=== PATIENT | female | born 1960 | race Caucasian/White ===

== ENCOUNTER → 2017-12-17 14:18 | Outpatient (CLI) | payer BC, SELFPAY ==
[2017-12-20 12:05] LABS: HPV APTIMA, High Risk Negative (Negative)
== END ==
PROVIDERS: Visit Provider Obstetrics & Gynecology
DX: Z12.4 Encounter for screening for malignant neoplasm of cervix (principal)
CPT/HCPCS: 88175; G0145

== ENCOUNTER → 2017-12-23 13:28 | Outpatient (CLI) | payer BC, SELFPAY ==
--- NOTE | 2017-12-23 13:30 | BI_ITS ---
MAMMOGRAPHY - BILATERAL SCREENING REASON FOR EXAM: Female, 57 years old. Routine annual screening examination. PERTINENT HISTORY: Mother with breast cancer. Aunt with breast cancer. TECHNIQUE: Digital bilateral breast yudi (3D mammographic acquisition) in the CC and MLO projections. 2-D mediolateral oblique (MLO) and craniocaudad (CC) views of both breasts were obtained. CAD: Full Field Digital Mammography with Computer Added Detection was performed. COMPARISON: Comparison is made with prior outside examination dated December 05, 2016. FINDINGS: Breast Composition: The breasts are heterogeneously dense, which may obscure small masses. There are no dominant masses or suspicious calcifications. No other significant abnormalities are identified. There has been no significant change since the prior study. BI/SCREENING MAMM (CAD), BILAT IMPRESSION: Stable bilateral screening mammogram. Yearly follow-up mammogram recommended. (A) ASSESSMENT CATEGORY: BIRADS Category 1: Negative. A letter regarding these results will be sent to the patient by the facility within 30 days. Approximately 10% of breast cancers are not detected by mammography. A normal mammogram should not delay biopsy of a clinically suspicious abnormality. [id number] Electronically Signed: Get Hidalgo MD at 15:06 EDT Tel [phone], Service support ,
== END ==
PROVIDERS: Family Provider Family Medicine; PCP Family Medicine; Visit Provider Obstetrics & Gynecology
DX: Z12.31 Encounter for screening mammogram for malignant neoplasm of breast (principal)
CPT/HCPCS: 77063; 77067

== ENCOUNTER → 2018-12-25 | Outpatient (CLI) | payer BC, SELFPAY ==
--- NOTE | 2018-12-25 14:50 | BI_ITS ---
MAMMOGRAPHY - BILATERAL SCREENING REASON FOR EXAM: Female, 58 years old. Routine annual screening examination. PERTINENT HISTORY: Mother with breast cancer. Aunt with breast cancer. TECHNIQUE: Digital bilateral breast dexter (3D mammographic acquisition) in the CC and MLO projections. 2-D mediolateral oblique (MLO) and craniocaudad (CC) views of both breasts were obtained. CAD: Full Field Digital Mammography with Computer Added Detection was performed. COMPARISON: Comparison is made with prior study dated December 23, 2017 and December 05, 2016. FINDINGS: Breast Composition: The breasts are heterogeneously dense, which may obscure small masses. There are no dominant masses or suspicious calcifications. No other significant abnormalities are identified. There has been no significant change since the prior study. BI/SCREEN MAMM (CAD) W/DEXTER BILAT IMPRESSION: Stable bilateral screening mammogram. Yearly follow-up mammogram recommended. (A) ASSESSMENT CATEGORY: BIRADS Category 1: Negative. A letter regarding these results will be sent to the patient by the facility within 30 days. Approximately 10% of breast cancers are not detected by mammography. A normal mammogram should not delay biopsy of a clinically suspicious abnormality. [id number] Electronically Signed: Get Hidalgo, at 7:55 EDT , Service support ,
== END | disposition home or self-care (01) ==
LOC: OPBI 14:48
PROVIDERS: Family Provider Family Medicine; PCP Family Medicine; Referring Provider Obstetrics & Gynecology; Visit Provider Obstetrics & Gynecology
DX: Z12.31 Encounter for screening mammogram for malignant neoplasm of breast (principal)
CPT/HCPCS: 77063; 77067

== ENCOUNTER → 2019-12-29 12:46 | Outpatient (CLI) | payer BC, SELFPAY ==
[2018-12-26 13:16] VITALS: BMI 23.5
--- NOTE | 2019-12-29 12:48 | BI_ITS ---
MAMMOGRAPHY - BILATERAL SCREENING REASON FOR EXAM: Female, 59 years old. Routine annual screening examination. PERTINENT HISTORY: Mother with breast cancer. Aunt with breast cancer. TECHNIQUE: Digital bilateral breast dexter (3D mammographic acquisition) in the CC and MLO projections. 2-D mediolateral oblique (MLO) and craniocaudad (CC) views of both breasts were obtained. CAD: Full Field Digital Mammography with Computer Added Detection was performed. COMPARISON: Comparison is made with prior examination dated December 25, 2018 and December 23, 2017. FINDINGS: Breast Composition: The breasts are heterogeneously dense, which may obscure small masses. There are no dominant masses or suspicious calcifications. No other significant abnormalities are identified. There has been no significant change since the prior study. BI/SCREEN MAMM (CAD) W/DEXTER BILAT IMPRESSION: Stable bilateral screening mammogram. Yearly follow-up mammogram recommended. (A) ASSESSMENT CATEGORY: BIRADS Category 1: Negative. A letter regarding these results will be sent to the patient by the facility within 30 days. Approximately 10% of breast cancers are not detected by mammography. A normal mammogram should not delay biopsy of a clinically suspicious abnormality. [id number] Electronically Signed: Get Hidalgo, at 15:07 EDT , Service support ,
== END ==
PROVIDERS: PCP Family Medicine; Referring Provider Obstetrics & Gynecology; Visit Provider Obstetrics & Gynecology
DX: Z12.31 Encounter for screening mammogram for malignant neoplasm of breast (principal)
CPT/HCPCS: 77063; 77067

== ENCOUNTER → 2020-12-29 11:44 | Outpatient (CLI) | payer BC, SELFPAY ==
[2019-12-29 14:07] VITALS: BMI 23.5
--- NOTE | 2020-12-29 11:48 | BI_ITS ---
MAMMOGRAPHY - BILATERAL SCREENING REASON FOR EXAM: Female, 60 years old. Routine annual screening examination. PERTINENT HISTORY: Mother with breast cancer. Aunt with breast cancer. TECHNIQUE: Digital bilateral breast dexter (3D mammographic acquisition) in the CC and MLO projections. 2-D mediolateral oblique (MLO) and craniocaudad (CC) views of both breasts were obtained. CAD: Full Field Digital Mammography with Computer Added Detection was performed. COMPARISON: Comparison is made with prior examination dated 12/29/2019 and 12/25/2018. FINDINGS: Breast Composition: The breasts are heterogeneously dense, which may obscure small masses. There are no dominant masses or suspicious calcifications. No other significant abnormalities are identified. There has been no significant change since the prior study. BI/SCRN MAMM (CAD)W/DEXTER BILAT IMPRESSION: Stable bilateral screening mammogram. Yearly follow-up mammogram recommended. (A) ASSESSMENT CATEGORY: BIRADS Category 1: Negative. A letter regarding these results will be sent to the patient by the facility within 30 days. Approximately 10% of breast cancers are not detected by mammography. A normal mammogram should not delay biopsy of a clinically suspicious abnormality. [id number] Electronically Signed: Get Hidalgo MD at 13:14 EDT , Service support ,
== END ==
PROVIDERS: PCP Family Medicine; Referring Provider Obstetrics & Gynecology; Visit Provider Obstetrics & Gynecology
DX: Z12.31 Encounter for screening mammogram for malignant neoplasm of breast (principal)
CPT/HCPCS: 77063; 77067

== ENCOUNTER → 2021-01-12 13:09 | Outpatient (CLI) | payer BC, SELFPAY ==
[2021-01-03 12:49] VITALS: BMI 23.5
--- NOTE | 2021-01-12 13:25 | BD_ITS ---
STUDY: DUAL ENERGY X-RAY ABSORPTIOMETRY / DXA REASON FOR EXAM: Female, 60 years old. Osteopenia TECHNIQUE: Bone Mineral Density (BMD) measurements of lumbar spine and bilateral hips were obtained. COMPARISON: Comparison is made with prior study dated 12/15/2015. FINDINGS: Lumbar Spine (L1-L4): g/cm2 (0.955) / T-score (-1.8) / Z-score (-0.4) Findings are suggestive of osteopenia with a moderate fracture risk. Left Femur Total: g/cm2 (0.734) / T-score (-2.2) / Z-score (-1.2) Left Femoral Neck: g/cm2 (0.745) / T-score (-2.1) / Z-score (-0.8) Right Femur Total: g/cm2 (0.690) / T-score (-2.5) / Z-score (-1.5) Right Femoral Neck: g/cm2 (0.7-1) / T-score (-2.3) / Z-score (-1.0) The T-Scores on the most recent prior examination were: Lumbar Spine (L1-L4): There has been worsening of bone density since the previous examination. Left Femur Total: which represents a worsening of 0.4%. Right Femur Total: which represents a worsening of 0.1%. BD/Dexa Bone Density Study IMPRESSION: The patient is considered osteopenic as outlined below according to World Bunny Organization (WHO) criteria with a high fracture risk. There has been worsening of bone density since the previous examination. Reference Information: The T-score is the number of standard deviations above or below the standard which is normal for young adults at their peak bone mineral density. The World Health Organization (WHO) interprets the T-scores as follows: Above -1 Normal bone density Between -1 and -2.5 Osteopenia Equal to / or below -2.5 Osteoporosis As a practical clinical guideline, osteopenia may be graded as follows: Mild -1 through -1.5 Moderate -1.6 through -2.0 Severe -2.1 through -2.4 The Z-score is the number of standard deviations above or below age-matched controls. A Z-score of less than -1.5 would be considered abnormal. References: 1. NIH Osteoporosis and Related Bone Diseases www osteo.org 2. International Society for Clinical Densitometry www iscd.org 3. National Osteoporosis Foundation www nof.org Electronically Signed: Get Hidalgo MD at 15:47 EDT , Service support ,
== END ==
PROVIDERS: PCP Family Medicine; Referring Provider Nurse Practitioner Women's Health; Visit Provider Nurse Practitioner Women's Health
DX: M85.89 Other specified disorders of bone density and structure, multiple sites (principal)
CPT/HCPCS: 77080

== ENCOUNTER → 2022-01-10 | Outpatient (CLI) | payer BC, SELFPAY | END | disposition home or self-care (01) | PROVIDERS: PCP Family Medicine; Referring Provider Nurse Practitioner Women's Health; Visit Provider Nurse Practitioner Women's Health | DX: R82.90 Unspecified abnormal findings in urine (principal) | CPT/HCPCS: 87077; 87086; 87088; 87186 ==

== ENCOUNTER → 2022-01-11 | Outpatient (CLI) | payer BC, SELFPAY ==
--- NOTE | 2022-01-11 14:32 | BI_ITS ---
MAMMOGRAPHY - BILATERAL SCREENING REASON FOR EXAM: Female, 61 years old. Routine annual screening examination. PERTINENT HISTORY: Mother with breast cancer. Aunt with breast cancer. TECHNIQUE: Digital bilateral breast dexter (3D mammographic acquisition) in the CC and MLO projections. 2-D mediolateral oblique (MLO) and craniocaudad (CC) views of both breasts were obtained. CAD: Full Field Digital Mammography with Computer Added Detection was performed. COMPARISON: Mammograms from 12/29/2020, 12/29/2019, 12/25/2018, 12/23/2017. FINDINGS: Breast Composition: The breasts are heterogeneously dense, which may obscure small masses. There are no dominant masses or suspicious calcifications. No other significant abnormalities are identified. There has been no significant change since the prior study. BI/SCRN MAMM (CAD)W/DEXTER BILAT IMPRESSION: Stable bilateral screening mammogram. Yearly follow-up mammogram recommended. (A) ASSESSMENT CATEGORY: BIRADS Category 1: Negative. A letter regarding these results will be sent to the patient by the facility within 30 days. Approximately 10% of breast cancers are not detected by mammography. A normal mammogram should not delay biopsy of a clinically suspicious abnormality. [id number] Electronically Signed: Minesh Raman, at 14:44 EDT ,
== END | disposition home or self-care (01) ==
PROVIDERS: PCP Family Medicine; Referring Provider Nurse Practitioner Women's Health; Visit Provider Nurse Practitioner Women's Health
DX: Z12.31 Encounter for screening mammogram for malignant neoplasm of breast (principal)
CPT/HCPCS: 77063; 77067; 87086

== ENCOUNTER → 2022-02-09 | Outpatient (CLI) | payer BC, SELFPAY ==
[2022-02-09 08:00] LABS: AST(SGOT) 52 U/L (15-37); Alanine Aminotransfer ALT/SGPT 81 U/L (13-56); Albumin, Serum 3.7 g/dL (3.2-5.0); Alkaline Phosphatase 85 U/L (45-117); Anion Gap 4 (5-15); BUN 16 mg/dL (7-18); BUN/Creat Ratio 16.8 RATIO (10-20); Calcium,Total 9.1 mg/dL (8.5-10.1); Chloride 109 mmol/L (98-107); Creatinine, Serum 0.95 mg/dL (0.55-1.02); EST Glomerular Filtration Rate 63 mL/min (>60); Est Glom Filt Rate - Afr Amer 76 mL/min (>60); Globulin 3.7 g/dL (2.2-4.2); Glucose 92 mg/dL (74-106); Potassium 3.8 mmol/L (3.5-5.1); Protein, Total 7.4 g/dL (6.4-8.2); Sodium Level 140 mmol/L (136-145)
[2022-02-09 09:08] LABS: PTHIN 90.1 pg/mL (18.4-80.1)
[2022-02-09 09:12] LABS: Vitamin D,25 Hydroxy 37.8 ng/mL
== END | disposition home or self-care (01) ==
LOC: LAB 05:58
PROVIDERS: PCP Family Medicine; Referring Provider Internal Medicine Endocrinology, Diabetes & Metabolism; Visit Provider Internal Medicine Endocrinology, Diabetes & Metabolism
DX: M81.0 Age-related osteoporosis without current pathological fracture (principal); E55.9 Vitamin D deficiency, unspecified
CPT/HCPCS: 36415; 80053; 82306; 83970

== ENCOUNTER 2022-02-28 05:55 | Outpatient (CLI) | payer BC, SELFPAY ==
[2022-02-28 06:56] LABS: AST(SGOT) 26 U/L (15-37); Alanine Aminotransfer ALT/SGPT 52 U/L (13-56); Albumin, Serum 3.7 g/dL (3.2-5.0); Alkaline Phosphatase 85 U/L (45-117); Bilirubin, Direct 0.25 mg/dL (0.00-0.30); Globulin 3.6 g/dL (2.2-4.2); Protein, Total 7.3 g/dL (6.4-8.2)
== END 2022-02-28 23:59 | disposition home or self-care (01) ==
LOC: LAB 05:56
PROVIDERS: PCP Family Medicine; Visit Provider Family Medicine
DX: R74.8 Abnormal levels of other serum enzymes (principal)
CPT/HCPCS: 36415; 80076

== ENCOUNTER 2022-03-22 16:06 | Outpatient (CLI) | payer BC, SELFPAY ==
--- NOTE | 2022-03-22 16:08 | RAD_ITS ---
STUDY: X-RAY - LEFT SHOULDER REASON FOR EXAM: Female, 61 years old. Left shoulder stiffness TECHNIQUE: 4 view(s) of the shoulder. COMPARISON: None. FINDINGS: Glenohumeral joint and acromioclavicular joint are in normal alignment with mild degenerative change. Normal acromion. Normal humeral head and visualized proximal humerus. Normal clavicle scapula. The soft tissue structures are unremarkable. Normal visualized pulmonary apex. RAD/Shoulder min 2 Views IMPRESSION: 1. No acute abnormality of the left shoulder 2. Left glenohumeral and acromioclavicular joint osteoarthritic change Electronically Signed: Zhao Wyatt MD at 2:42 EDT ,
== END 2022-03-22 23:59 | disposition home or self-care (01) ==
PROVIDERS: PCP Family Medicine; Referring Provider Family Medicine; Visit Provider Family Medicine
DX: M25.812 Other specified joint disorders, left shoulder (principal); R82.90 Unspecified abnormal findings in urine
CPT/HCPCS: 73030; 87077; 87086; 87088; 87186

== ENCOUNTER → 2022-04-19 | Outpatient (CLI) | payer BC, SELFPAY ==
--- NOTE | 2022-04-19 07:17 | MRI_ITS ---
STUDY: MRI LEFT SHOULDER REASON FOR EXAM: Decreased range of motion of the left shoulder for 3.5 months. TECHNIQUE: Standardized fat and water weighted pulse sequences were obtained in all 3 orthogonal planes. COMPARISON: Radiographs 03/22/2022. FINDINGS: Normal supraspinatus tendon. Normal infraspinatus tendon. Normal subscapularis tendon. Normal teres minor tendon. Normal supraspinatus muscle. Normal infraspinatus muscle. Normal subscapularis muscle. Normal teres minor muscle. Normal glenohumeral articulation. There is very mild cystic change of the posterior aspect of the greater tuberosity. Normal biceps labral complex. Normal intracapsular long biceps tendon. Normal labrum. Normal capsulo- ligamentous complex. Normal acromioclavicular articulation. There is a Type II morphology (curved), with a neutral orientation. There is a small volume of subacromial-subdeltoid bursal fluid (T2 coronal images 10, 11). There is thickening of the coracohumeral ligament (T2 sagittal image 8). Normal deltoid muscle. Normal trapezius muscle. MRI/Upper Ext Joint Only(Routine) IMPRESSION: Thickening of the coracohumeral ligament, a possible MRI manifestation of adhesive capsulitis. Mild subacromial-subdeltoid bursitis. No demonstrated rotator cuff tear. Electronically Signed: Andrews Schaeffer MD at 8:33 EDT ,
== END | disposition home or self-care (01) ==
PROVIDERS: PCP Family Medicine; Referring Provider Family Medicine; Visit Provider Family Medicine
DX: M25.812 Other specified joint disorders, left shoulder (principal)
CPT/HCPCS: 73221

== ENCOUNTER → 2022-04-20 | Outpatient (CLI) | payer BC, SELFPAY ==
[2022-04-20] MEDS: DENOSUMAB 60 MG/ML SC (14:34)
[2022-04-20 14:35] VITALS: BP 152/90; PULSE 83; O2SAT 99
== END | disposition home or self-care (01) ==
LOC: MEDOUTP 14:16
PROVIDERS: PCP Family Medicine; Referring Provider Internal Medicine Endocrinology, Diabetes & Metabolism; Visit Provider Internal Medicine Endocrinology, Diabetes & Metabolism
DX: M81.0 Age-related osteoporosis without current pathological fracture (principal)
CPT/HCPCS: 96372; J0897

== ENCOUNTER 2022-09-10 14:00 | Outpatient (RCR) | payer BC, SELFPAY ==
--- NOTE | 2022-02-15 16:52 | HP.PTEVAL_ITS ---
Patient's Visit Information TREVOR THOMPSON is a 61 year old F referred to Physical Therapy by Dr. Nas Medina MD with a diagnosis of Left Posterior Capsule Tightness- Shoulder. Date of Evaluation: 02/15/22 Physical Therapist: Ailyn Long DPT - Visit Plan Frequency: 2x /Week Duration: 4 Weeks Plan: Focus on UE ROM and scapular s/s. HEP Given IE: Supine Cane Flexion/ER, Standing Abd/IR, Wall Wash Flexion, Postural Education - Subjective Patient reports that her daughter has the same thing and they told her she has frozen shoulder- she was diagnosed with tight posterior capsule. She has had this for a awhile. She saw Dr. Medina who gave her some exercises and its better. If doesn't go away to come back and see him- no X-ray or MRI. Pain is located from the shoulder to the elbow. Left Hand Dominate. Worst: 10/10 for a second then it goes away- stabbing pains. Then it goes away quickly. Does not go past the elbow. Agg: going behind her back and out to the side. Best: 0/10 Eases: letting it hang at her side. No N/T in the fingers. No LYNCH, blurred vision or dizziness. She had a DM test which was negative. Sleep: disturbed if she moves incorrectly- side sleeper. 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 PMHx/Meds: see chart - Objective Posture: FH, RS- can correct but does not maintain. Gait: no deviation noted- good arm swing and trunk rotation. Palpation: not tender to touch. ROM: Cervical: WFL pain with SB to the left Shoulder AROM: Flexion: 150 degrees, Abd: 90 degrees, IR: to pocket, ER: neutral, PROM: Flexion: 160 degrees, Abd: 130 degrees, IR: to belly, ER: 10 degrees with pain in all directions. Elbow/Wrist/Hand: WNL. Strength: Scap: fair minus- mild winging, Shoulder: 4/5 in neutral, Elbow: 4+/5, Wrist: 5/5 Packaging Sales: 40 lbs bilateral. Flex: UT: moderate, Levator: moderate. Sensation: WFL to gross touch bilateral UE - Special Tests L Shoulder Lift Off Test - Subscapular Tear: Negative L Shoulder Empty Can - SS: Positive L Shoulder Belly Press - SupScap: Positive L Shoulder Neer - Impingement: Positive L Shoulder Escudero Franky - Impingement: Positive - Balance/Special Test Scores Quick DASH Score: 9.0900 - Goals Goal 1:: Patient will be I with HEP and progression Goal Time Frame: 4-6 Weeks Goal 2:: Patient will maintain proper posture t/o tx session to demo increased scap s/s Goal Time Frame: 4-6 Weeks Goal 3:: Patient will demo full AROM of the left shoulder Goal Time Frame: 4-6 Weeks Goal 4:: Patient will report 80% improvement Goal Time Frame: 4-6 Weeks - Rehabilitation Potential Physical Therapy Diagnosis: Patient presents with hypomobility- she has decreased UE and scapular strength/stabilization, ROM and muscular endurance leading to poor posture and increased pain with ADL' - Anticipated Interventions Patient/Client Instruction: Educate patient on: Benefits of Fitness Program Therapeutic Exercise to Include: Strength training, Endurance training, Coordination, Agility training, Body mechanics, Postural training, Flexibilty training, Dynamic Lumbar Stabilization, Scapular Strength/Stabilization For the Purpose of:: To improve muscle performance and motor function Thank you for the opportunity to evaluate your patient. For Medicare and Medicare HMO plans, please review the plan of care and approve it. It will need to be FAXED BACK to us at [phone] for Medicare purposes. For Medicare only, by signing this I certify the plan of care. Please let me know if there are questions or concerns regarding this plan of care. Physician Signature: Date:
--- NOTE | 2022-03-21 15:51 | HP.PTREVAL ---
Dr. Nas Medina MD, It has been my pleasure to treat TREVOR THOMPSON over the last 9 visits for Left Posterior Capsule Tightness- Shoulder. Please see the progress note below for an update on the physical therapy plan of care! Subjective: She is much better but she still has a hard time getting her arm behind her back. She still has pain with behind her back and it radiates down the arm. Better but on there yet. She does not have a MD apt lined up. Objective/Function: Posture: fair throughout in standing. Gait: no deviation noted- good arm swing and trunk rotation. Palpation: not tender to touch. 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 Flex: UT: moderate, Levator: moderate. Sensation: WFL to gross touch bilateral UE. - Special Tests. L Shoulder Lift Off Test - Subscapular Tear: Negative. L Shoulder Empty Can - SS: Positive. L Shoulder Belly Press - SupScap: Positive. L Shoulder Neer - Impingement: Positive. L Shoulder Escudero Franky - Impingement: Positive Plan Plan: Focus on UE ROM and scapular s/s. HEP Given IE: Supine Cane Flexion/ER, Standing Abd/IR, Wall Wash Flexion, Postural Education Balance/Gait/Functional tests - Balance/Special Test Scores Quick DASH Score: 34.0900 Goals Goal 1:: Patient will be I with HEP and progression Goal Time Frame: 4-6 Weeks Goal Progress: Progressing Goal 2:: Patient will maintain proper posture t/o tx session to demo increased scap s/s Goal Time Frame: 4-6 Weeks Goal Progress: Progressing Goal 3:: Patient will demo full AROM of the left shoulder Goal Time Frame: 4-6 Weeks Goal Progress: Progressing Goal 4:: Patient will report 80% improvement Goal Time Frame: 4-6 Weeks Goal Progress: Progressing Anticipated Interventions Patient/Client Instruction: Educate patient on: Benefits of Fitness Program Therapeutic Exercise to Include: Strength training, Endurance training, Coordination, Agility training, Body mechanics, Postural training, Flexibilty training, Dynamic Lumbar Stabilization, Scapular Strength/Stabilization For the Purpose of:: To improve muscle performance and motor function Please do not hesitate to contact me at [phone] by phone or if you have questions or concerns regarding this new plan of care! Sincerely, FARRAH AlfaroT
--- NOTE | 2022-05-21 15:50 | HP.PTREVAL ---
Dr. Nas Medina MD, It has been my pleasure to treat TREVOR THOMPSON over the last 16 visits for Left Posterior Capsule Tightness- Shoulder. Please see the progress note below for an update on the physical therapy plan of care! Subjective: Patient reports that she is much better- less painful and has more motion. Pain is only in the biceps and its bad if she hits it wrong- but the moment she puts it down the pain goes away. She has not had an injection in the shoulder. She does not have an apt to go back and see him just PRN. She feels that she needs to continue therapy- she feels that the work on the shoulder really helps. Objective/Function: Posture: fair throughout in standing. Gait: no deviation noted- good arm swing and trunk rotation. Palpation: not tender to touch. ROM: Cervical: WFL in all planes Shoulder AROM: Flexion: 150 degrees, Abd: 160 degrees, IR: to pocket, ER: 40, Strength: Scap: fair minus- mild winging, Shoulder: 4+/5 in neutral, Elbow: 4+/5, Wrist: 5/5 Bookkeeping Manager: 40 lbs bilateral. Flex: UT: moderate, Levator: moderate. Sensation: WFL to gross touch bilateral UE. Plan Plan: 05/21/22: Cont 2x a week for 4 weeks. Focus on UE ROM and scapular s/s. HEP Given IE: Supine Cane Flexion/ER, Standing Abd/IR, Wall Wash Flexion, Postural Education Balance/Gait/Functional tests - Balance/Special Test Scores Quick DASH Score: 18.1800 Goals Goal 1:: Patient will be I with HEP and progression Goal Time Frame: 4-6 Weeks Goal Progress: Progressing Goal 2:: Patient will maintain proper posture t/o tx session to demo increased scap s/s Goal Time Frame: 4-6 Weeks Goal Progress: Progressing Goal 3:: Patient will demo full AROM of the left shoulder Goal Time Frame: 4-6 Weeks Goal Progress: Progressing Goal 4:: Patient will report 80% improvement Goal Time Frame: 4-6 Weeks Goal Progress: Progressing Anticipated Interventions Patient/Client Instruction: Educate patient on: Benefits of Fitness Program Therapeutic Exercise to Include: Strength training, Endurance training, Coordination, Agility training, Body mechanics, Postural training, Flexibilty training, Dynamic Lumbar Stabilization, Scapular Strength/Stabilization For the Purpose of:: To improve muscle performance and motor function Please do not hesitate to contact me at [phone] by phone or if you have questions or concerns regarding this new plan of care! Sincerely, AFRRAH AlfaroT
--- NOTE | 2022-06-27 15:56 | HP.PTREVAL_ITS ---
Dr. Nas Medina MD, It has been my pleasure to treat TREVOR THOMPSON over the last 25 visits for Left Posterior Capsule Tightness- Shoulder. Please see the progress note below for an update on the physical therapy plan of care! Subjective: She reports that she is so much better with therapy and massage- The only issue she is still experiencing is reaching overhead. She does not feel that she does not have the strength to lift something overhead. She would like to continue with PT. Objective/Function: Posture: fair throughout in sitting and standing. Gait: no deviation noted- good arm swing and trunk rotation. Palpation: not tender to touch. ROM: Cervical: WFL in all planes Shoulder AROM: Flexion: 160 degrees, Abd: 170 degrees, IR: to belt line, ER: 40, Strength: Scap: fair minus- mild winging, Shoulder: 4+/5 in neutral, Elbow: 4+/5, Wrist: 5/5 Incident Response Manager: 40 lbs bilateral. Flex: UT: moderate, Levator: moderate. Sensation: WFL to gross touch bilateral UE. Plan Plan: 06/27/22: Continue 2x a week for 3 weeks- progress is still being made in ROM-. 05/21/22: Cont 2x a week for 4 weeks. Focus on UE ROM and scapular s/s. HEP Given IE: Supine Cane Flexion/ER, Standing Abd/IR, Wall Wash Flexion, Postural Education Balance/Gait/Functional tests - Balance/Special Test Scores Quick DASH Score: 11.3625 Goals Goal 1:: Patient will be I with HEP and progression Goal Time Frame: 4-6 Weeks Goal Progress: Progressing Goal 2:: Patient will maintain proper posture t/o tx session to demo increased scap s/s Goal Time Frame: 4-6 Weeks Goal Progress: Progressing Goal 3:: Patient will demo full AROM of the left shoulder Goal Time Frame: 4-6 Weeks Goal Progress: Progressing Goal 4:: Patient will report 80% improvement Goal Time Frame: 4-6 Weeks Goal Progress: Progressing Anticipated Interventions Patient/Client Instruction: Educate patient on: Benefits of Fitness Program Therapeutic Exercise to Include: Strength training, Endurance training, Coordination, Agility training, Body mechanics, Postural training, Flexibilty tr aining, Dynamic Lumbar Stabilization, Scapular Strength/Stabilization For the Purpose of:: To improve muscle performance and motor function Please do not hesitate to contact me at [phone] by phone or if you have questions or concerns regarding this new plan of care! Sincerely, FARRAH AlfaroT
--- NOTE | 2022-09-10 14:13 | HP.PTDCSUM_ITS ---
It has been my pleasure to treat TREVOR THOMPSON referred by Dr. Nas Medina MD, with the diagnosis of Left Posterior Capsule Tightness- Shoulder for a total of 34 visit(s). Discharge Date: Please see the following information for a summary of their discharge status. Subjective: Patient reports that she is so much better- but now her right arm is bothering her. Behind the back is still tight. She is doing massage and exercises. No questions or concerns on the exercises. Left shoulder Pain Intensity (Out of 10): 0 % Improvement: 95 Objective/Function: Posture: fair throughout in sitting and standing. Gait: no deviation noted- good arm swing and trunk rotation. Palpation: not tender to touch. 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 Flex: UT: moderate, Levator: moderate. Sensation: WFL to gross touch bilateral UE. Goal 1:: Patient will be I with HEP and progression Goal Progress: Progressing Goal 2:: Patient will maintain proper posture t/o tx session to demo increased scap s/s Goal Progress: Progressing Goal 3:: Patient will demo full AROM of the left shoulder Goal Progress: Progressing Goal 4:: Patient will report 80% improvement Goal Progress: Progressing Plan: 09/10/22:[facility]charge to [facility] If there are questions or concerns regarding this patient's physical therapy, please feel free to call me at [phone]. Thank you for the referral of this patient. Sincerely, Ailyn Long, DPT Balance/Gait/Functional tests - Balance/Special Test Scores Quick DASH Score: 6.8175
== END 2022-09-10 14:22 | disposition home or self-care (01) ==
LOC: PT 14:00
PROVIDERS: PCP Family Medicine; Referring Provider Family Medicine; Visit Provider Family Medicine
DX: M25.612 Stiffness of left shoulder, not elsewhere classified (principal)
CPT/HCPCS: 97110; 97140; 97161; 97164

== ENCOUNTER → 2022-10-18 | Outpatient (CLI) | payer BC, SELFPAY ==
[2022-10-18 18:10] LABS: Absolute Lymphocyte Count 2.74 X10^3/uL (0.83-4.51); Absolute Neutrophil Count 3.3 X10^3/uL (2.0-7.7); Basophil# 0.03 X10^3/uL; Basophil% 0.4 % (0-1); Eosinophils% 2.9 % (0-5); Erythrocyte Sedimentation Rate 11 mm/hr (0-30); Hematocrit 43.2 % (37-47); Hemoglobin 13.8 g/dL (12.0-15.0); Lymphocyte # 2.74 X10^3/ul (0.83-4.51); Lymphocyte % 39.8 % (19-41); Mean Corp Hgb Conc 31.9 g/dL (32-36); Mean Corpuscular Hgb 29.7 pg (27.0-32.0); Mean Corpuscular Volume 92.9 fL (81-99); Mean Platelet Vol. 10.7 fl (6.2-12.0); Monocyte# 0.58 X10^3/uL; Monocyte% 8.4 % (0-10); NRBC Flagged by Analyzer 0 % (0-5); Neutrophil # 3.32 X10^3/uL (2.7-7.7); Neutrophil % 48.2 % (47-70); Platelet Count 306 K/mm3 (150-450); RBC Distribution Width CV 12.3 % (11.6-14.6); RBC Distribution Width SD 41.9 fl (35.1-43.9); Red Blood Count 4.65 M/mm3 (4.2-5.4); White Blood Count 6.9 K/mm3 (4.4-11.0)
[2022-10-18 18:25] LABS: Vitamin B12 366 pg/mL (211-911); Vitamin D,25 Hydroxy 43.9 ng/mL
[2022-10-18 18:32] LABS: ALB/GLOB Ratio 1.1 RATIO (0.9-2.4); AST(SGOT) 21 U/L (15-37); Alanine Aminotransfer ALT/SGPT 32 U/L (13-56); Alkaline Phosphatase 68 U/L (45-117); Anion Gap 6 (5-15); BUN 18 mg/dL (7-18); BUN/Creat Ratio 17.8 RATIO (10-20); Calcium,Total 9.2 mg/dL (8.5-10.1); Chloride 107 mmol/L (98-107); Creatinine, Serum 1.01 mg/dL (0.55-1.02); EST Glomerular Filtration Rate 59 mL/min (>60); Est Glom Filt Rate - Afr Amer 71 mL/min (>60); Globulin 3.6 g/dL (2.2-4.2); Glucose 87 mg/dL (74-106); Iron 51 ug/dL (50-170); Potassium 3.8 mmol/L (3.5-5.1); Protein, Total 7.6 g/dL (6.4-8.2); Sodium Level 140 mmol/L (136-145); Thyroid Stim Hormone (TSH) 1.72 uIU/mL (0.358-3.74)
== END | disposition home or self-care (01) ==
LOC: MFPLAB 16:41
PROVIDERS: PCP Family Medicine; Visit Provider Family Medicine
DX: R53.83 Other fatigue (principal)
CPT/HCPCS: 36415; 80053; 82306; 82533; 82607; 83540; 84443; 85025; 85652

== ENCOUNTER → 2022-10-19 | Outpatient (CLI) | payer BC, SELFPAY ==
[2022-10-19 14:23] VITALS: BP 143/81; PULSE 66; RESP 16; TEMP 36.3; O2SAT 99
[2022-10-19] MEDS: DENOSUMAB 60 MG/ML SC (14:26)
== END | disposition home or self-care (01) ==
LOC: MEDOUTP 14:17
PROVIDERS: PCP Family Medicine; Referring Provider Internal Medicine Endocrinology, Diabetes & Metabolism; Visit Provider Internal Medicine Endocrinology, Diabetes & Metabolism
DX: M81.0 Age-related osteoporosis without current pathological fracture (principal)
CPT/HCPCS: 96372; J0897

== ENCOUNTER 2022-11-02 05:43 | Emergency (ER) | payer BC, SELFPAY ==
[2022-11-02 05:44] VITALS: BP 151/71; PULSE 92; RESP 16; TEMP 36.6; O2SAT 100; BMI 26.9
--- NOTE | 2022-11-02 06:01 | CT_ITS ---
EXAM: CT HEAD WITHOUT INTRAVENOUS CONTRAST CLINICAL INDICATION: Pain/LYNCH/DIZZY TECHNIQUE: Multiple axial images were obtained of the head without intravenous contrast. This CT exam was performed using one or more of the following dose reduction techniques: automated exposure control, adjustment of the mA and/or kV according to patient size, and/or use of iterative reconstruction technique. This report was created using [employer] report generation technology. RADIATION DOSE: CTDIvol = 44.99 mGy, DLP = 829.85 mGy-cm. COMPARISON: None. FINDINGS: BRAIN AND EXTRA-AXIAL SPACES: Unremarkable. No intra- or extra-axial hemorrhage. No evidence of acute infarct. No intracranial mass or mass effect. There is preservation of the rodriguez/white matter interface. Posterior fossa structures are unremarkable. Ventricles are appropriate for age. No hydrocephalus. Basal cisterns are patent. BONES/JOINTS: Unremarkable. No discrete lytic or blastic abnormalities. SINUSES: Unremarkable as visualized. Clear. MASTOID AIR CELLS: Unremarkable. Clear. ORBITS: Visualized globes, extraocular muscles, optic nerves and retrobulbar fat appear unremarkable. CT/Brain/Head without Contrast IMPRESSION: Negative head/brain CT without intravenous contrast. Electronically Signed: Mir Betancourt MD at 6:56 EDT ,
--- NOTE | 2022-11-02 06:01 | EDS_ITS ---
HPI History of Present Illness Chief Complaint: Headache Informant: patient Onset/Context/Timing Onset: Hours (2) Context: Sudden and Activity (resting in bed, not asleep) Timing: Intermittent Location: Bifrontal and occipital Current Severity: Moderate Maximum Severity: Moderate Worsened by: Light Relieved by: Nothing Associated Symptoms/Injury Associated Symptoms: Positive for Visual Changes (Spots in peripheral vision bilaterally), Blurred Vision and Photophobia; Negative for Fever, Nausea, Vomiting, Sinus Pressure or Tingling Injury - LYNCH: Negative for Direct Trauma Narrative Narrative: Patient woke up in the middle of the night this morning around 4 AM with a headache, states it has been coming and going since then but when it started it was abrupt, but not a thunderclap. No loss of consciousness. She states it was awake when it started. For the past 2 or 3 weeks, she has been having lots of nasal congestion, some rhinorrhea without purulence, and vertiginous symptoms. The vertigo is gone and she has not been off balance this morning when walking. She denies any weakness, numbness in arms or legs or trouble speaking or understanding others although she was having some vision symptoms as above. Not really having much in the way of headaches like this in the past 2 or 3 weeks. She did see her PCP and had some blood work for all of this, she has had no imaging of her head recently. [facility] Medical History Osteoporosis Vitamin D deficiency Home Medications calcium-vitamin D3-vitamin K 500 mg-1,000 unit-40 mcg chewable tablet 1 tab PO DAILY 12/17/17 [History Last Taken Unknown] Prolia 60 mg/mL subcutaneous syringe (denosumab) 60 mg subcut [id number] #1 mL 02/12/22 [Rx Last Taken Unknown] Allergy/AdvReac Type Severity Reaction Status Date / Time Penicillins Allergy Severe Anaphylaxis Verified 11/02/22 05:48 alendronate sodium Allergy Intermediate Rash Verified 11/02/22 05:48 clindamycin Allergy Intermediate Rash Verified 11/02/22 05:48 doxycycline Allergy Intermediate PT UNSURE Verified 11/02/22 05:48 OF REACTION Family History Mother Breast cancer Aunt Breast cancer Father Larynx cancer Surgical History History of S/P appendectomy Social History Smoking Status: Former smoker alcohol intake: current details: 1 glass of wine nightly substance use type: does not use caffeine: Yes what type of physical activity do you participate in: none seatbelt use: always do you feel safe at home: Yes additional social history: - [employer]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 [employer] 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 at [employer] Convrrt ROS ED Constitutional Constitutional ED: Denies chills or fever(s) Eyes Eyes: Reports as per HPI, blurry vision and change in vision bilateral; Denies diplopia ENT ENT ED: Reports rhinorrhea; Denies ear pain or sore throat Cardiovascular Cardiovascular: Denies chest pain or palpitations Respiratory/Chest Respiratory/Chest: Denies cough or dyspnea Gastrointestinal Gastrointestinal: Denies abdominal pain, diarrhea, nausea or vomiting Genitourinary Genitourinary ED: Denies dysuria or urinary frequency Musculoskeletal Musculoskeletal: Denies back pain or myalgias Integumentary Denies abscess or rash Neurologic Neurologic: Reports headache(s); Denies paresthesias or weakness EXAM Physical Exam Const Vital Signs: 11/02/22 05:44 Temperature 97.9 F Temperature Source Temporal Pulse Rate 92 Respiratory Rate 16 Blood Pressure 151/71 H Blood Pressure Mean 97 Pulse Ox 100 Oxygen Delivery Method Room Air Positive well nourished and well developed General Appearance ED: well developed and NAD HEENT Reports normocephalic, TM's clear and moist mucous membranes atraumatic Tympanic Membrane ED: Yes TM's clear Eyes PERRL, EOMs intact bilaterally and conjunctivae normal Eyes Narrative: mild photophobia. No abnormal/pathologic nystagmus Neck no lymphadenopathy, supple and no meningeal signs Resp normal respiratory effort and clear to auscultation bilaterally GI non-tender and non-distended Palpation: soft Extremity normal to inspection and full ROM Neuro oriented x3 and CN's II-XII intact bilaterally Sensorium / Orientation: awake and alert Coordination / Balance: [id number] test normal and amqk-ou-nlim test normal Speech: speech normal Gait (Neuro): normal gait Motor Exam: strength 5/5 throughout Psych mental status grossly normal Skin Lesions: no lesions Rashes: no rashes MDM MDM MDM Narrative Medical decision making narrative: Patient was treated with IV Reglan and Toradol, and a CT of the brain was obtained, I had the equipment service technician include the sinuses as well given her symptoms. The images appear normal I see no evidence of sinus disease or focal GATE TECHNICIAN abnormality, radiology was in agreement and I agree with their interpretation. On reevaluation patient is feeling better. Stable for discharge home, her blood pressures in the 150s here, do not think this is deserving of acute emergent treatment, she needs to have follow-up evaluation blood pressure check. We discussed reasons to return. Radiography Diagnostic Testing: Clinical Impression(s) from Imaging Studies Brain CT 11/02/22 06:01 IMPRESSION: Negative head/brain CT without intravenous contrast. Electronically Signed: Mir Betancourt MD at 6:56 EDT , Discharge Plan Triage Chief Complaint: Headache ED Provider: Guru Antonio Dx/Rx/DC Orders Clinical Impression: Acute headache Instructions: ED Headache Unspecified, ED, Migraine (Classical) Prescriptions: No Action calcium-vitamin D3-vitamin K 500 mg-1,000 unit-40 mcg tablet,chewable 1 tab PO DAILY Prolia 60 mg/mL syringe 60 mg subcut [id number] Qty: 1 1RF Primary Care Provider: Meghan Barahona Referrals: Meghan Barahona MD [Primary Care Provider] - 3-5 Days if not improving Disposition Disposition: Home, Self Care
[2022-11-02] MEDS: Metoclopramide 10 MG/2 ML Vial 5 MG IV (06:11)
[2022-11-02] MEDS: Ketorolac 15 MG/ML Vial IV (06:12)
== END 2022-11-02 07:39 | disposition home or self-care (01) ==
PROVIDERS: Emergency Provider Emergency Medicine; PCP Family Medicine; Visit Provider Emergency Medicine
DX: R51.9 Headache, unspecified (principal); Z87.891 Personal history of nicotine dependence; M81.0 Age-related osteoporosis without current pathological fracture; Z79.899 Other long term (current) drug therapy
CPT/HCPCS: 70450; 96374; 96376; 99282

== ENCOUNTER 2022-11-19 07:00 | Outpatient (RCR) | payer BC, SELFPAY ==
--- NOTE | 2022-09-19 07:32 | HP.PTEVAL_ITS ---
Patient's Visit Information TREVOR THOMPSON is a 62 year old F referred to Physical Therapy by Dr. Nas Medina MD with a diagnosis of Right Shoulder Pain. Date of Evaluation: 09/19/22 Physical Therapist: Ailyn Long DPT - Visit Plan Frequency: 2x /Week Duration: 4 Weeks Plan: Focus on UE ROM and scapular s/s. HEP Given IE: Upper Trap Stretching, Table Walk Aways, Cat/Cow, Child's Pose - Subjective Right shoulder pain started about 3 weeks ago- she feels that its staying about the same- she has had frozen shoulder in the left UE and wanted to catch it quickly. Pain is located in the shoulder from the elbow to the neck- it does not hurt if she doesnt use it. Agg: out to the side and then behind the back. Eases: goes away immediately if she puts her arm back down. Worst: 10/10. Describes the pain as sharp. Left hand dominate. o N/T in the fingers. No LYNCH, blurred vision or dizziness. She had a DM test which was negative. Sleep: disturbed if she moves incorrectly- side sleeper. Work: [employer] s[employer]. No issues with diamond sizer strength or finger dexterity. She has had extensive PT ont he left and continues her HEP. PMHx/Meds: see chart - Objective Posture: FH, RS- can correct but does not maintain. Gait: no deviation noted- good arm swing and trunk rotation. Palpation: not tender to touch. ROM: Cervical: WFL pain with SB to the left Shoulder AROM: Flexion: 180 degrees, Abd: 160 degrees, IR: thumb to bottom of scap, ER: 50 PROM: WFL in all directions Elbow/Wrist/Hand: WNL. Strength: Scap: fair minus- mild winging, Shoulder: 4/5 in neutral, Elbow: 5/5, Wrist: 5/5. Flex: UT: moderate, Levator: moderate. Sensation: WFL to gross touch bilateral UE - Balance/Special Test Scores Quick DASH Score: 15.9075 - Goals Goal 1:: Patient will be I with HEP and progression Goal Time Frame: 4-6 Weeks Goal 2:: Patient will demo full AROM without pain Goal Time Frame: 4-6 Weeks Goal 3:: Patient will maintain proper posture to demo scap s/s Goal Time Frame: 4-6 Weeks Goal 4:: Patient will report 80% improvement Goal Time Frame: 4-6 Weeks - Rehabilitation Potential Physical Therapy Diagnosis: Patient presents with hypomobility- she has decreased UE and scapular strength/stabilization, ROM and muscular endurance leading to poor posture and increased pain with ADL' Rehabilitation Potential: Fair - Anticipated Interventions Patient/Client Instruction: Educate patient on: Benefits of Fitness Program Therapeutic Exercise to Include: Strength training, Endurance training, Coordination, Agility training, Body mechanics, Postural training, Flexibilty training, Gait and locomotor training, Neuromotor development, Dynamic Lumbar Stabilization, Scapular Strength/Stabilization For the Purpose of:: To improve muscle performance and motor function TENS: Yes Cryotherapy (ice pack, ice massage): Yes Thermo therapy (hot pack): Yes Thank you for the opportunity to evaluate your patient. For Medicare and Medicare HMO plans, please review the plan of care and approve it. It will need to be FAXED BACK to us at [phone] for Medicare purposes. For Medicare only, by signing this I certify the plan of care. Please let me know if there are questions or concerns regarding this plan of care. Physician Signature: Date:
--- NOTE | 2022-10-17 07:44 | HP.PTREVAL ---
Dr. Nas Medina MD, It has been my pleasure to treat TREVOR THOMPSON over the last 10 visits for Right Shoulder Pain. Please see the progress note below for an update on the physical therapy plan of care! Subjective: Patient is making progress with her ROM and strength- she feels that the left arm is 90% better and she is not having any issues with it. However, her right shoulder is only 65% better and is still waking her up at night. She feels that she would like to continue PT 2x a week for 4 weeks with progression to HEP with H&W Objective/Function: Posture: FH, RS- can correct but does not maintain. Gait: no deviation noted- good arm swing and trunk rotation. Palpation: not tender to touch. ROM: Cervical: WFL pain with SB to the left Shoulder AROM: Flexion: 180 degrees, Abd: 170 degrees, IR: thumb to bottom of scap, ER: 50 PROM: WFL in all directions Elbow/Wrist/Hand: WNL. Strength: Scap: fair minus- mild winging, Shoulder: 4+/5 in neutral, Elbow: 5/5, Wrist: 5/5. Flex: UT: moderate, Levator: moderate. Sensation: WFL to gross touch bilateral UE Plan Plan: 09/19/22: Continue 2x a week for 4 weeks with progression to H&W program. continue shoulder treatment tomorrow and notify EG if patient still dizzy. Balance/Gait/Functional tests - Balance/Special Test Scores Quick DASH Score: 29.5450 Goals Goal 1:: Patient will be I with HEP and progression Goal Time Frame: 4-6 Weeks Goal 2:: Patient will demo full AROM without pain Goal Time Frame: 4-6 Weeks Goal 3:: Patient will maintain proper posture to demo scap s/s Goal Time Frame: 4-6 Weeks Goal 4:: Patient will report 80% improvement Goal Time Frame: 4-6 Weeks Anticipated Interventions Patient/Client Instruction: Educate patient on: Benefits of Fitness Program Therapeutic Exercise to Include: Strength training, Endurance training, Coordination, Agility training, Body mechanics, Postural training, Flexibilty training, Gait and locomotor training, Neuromotor development, Dynamic Lumbar Stabilization, Scapular Strength/Stabilization For the Purpose of:: To improve muscle performance and motor function TENS: Yes Cryotherapy (ice pack, ice massage): Yes Thermo therapy (hot pack): Yes Please do not hesitate to contact me at [phone] by phone or if you have questions or concerns regarding this new plan of care! Sincerely, FARRAH AlfaroT
--- NOTE | 2022-11-19 07:45 | HP.PTDCSUM ---
It has been my pleasure to treat TREVOR THOMPSON referred by Dr. Nas Medina MD, with the diagnosis of Right Shoulder Pain for a total of 18 visit(s). Discharge Date: Please see the following information for a summary of their discharge status. Subjective: Patient reports that the right shoulder still has some issues going backwards and wakes her up going backwards. But its getting better. She feels good about the gym program. She is gone 2.5 weeks. Right Shoulder Pain Intensity (Out of 10): 4 Left Shoulder Pain Intensity (Out of 10): 0 % Improvement: 80 Objective/Function: Posture: fair throughout treatment session in both sitting and standing- no guarding of either UE Gait: no deviation noted- good arm swing and trunk rotation. Palpation: not tender to touch. ROM: Cervical: WFL Shoulder AROM: Flexion: 180 degrees, Abd: 170 degrees, IR: thumb to bottom of scap, ER: 50 PROM: WFL in all directions Elbow/Wrist/Hand: WNL. Strength: Scap: fair minus- mild winging, Shoulder: 4+/5 in neutral, Elbow: 5/5, Wrist: 5/5. Flex: UT: moderate, Levator: moderate. Sensation: WFL to gross touch bilateral UE Goal 1:: Patient will be I with HEP and progression Goal Progress: Goal Met Goal 2:: Patient will demo full AROM without pain Goal 3:: Patient will maintain proper posture to demo scap s/s Goal Progress: Goal Met Goal 4:: Patient will report 80% improvement Goal Progress: Goal Met Plan: 11/19/22: Discharge to I HEP through H&W- given written UE program. 09/19/22: Continue 2x a week for 4 weeks with progression to H&W program. continue shoulder treatment tomorrow and notify EG if patient still dizzy. If there are questions or concerns regarding this patient's physical therapy, please feel free to call me at [phone]. Thank you for the referral of this patient. Sincerely, Ailyn Long, DPT Balance/Gait/Functional tests - Balance/Special Test Scores Quick DASH Score: 13.6350
== END 2022-11-19 13:05 | disposition home or self-care (01) ==
LOC: PT 07:00
PROVIDERS: PCP Family Medicine; Referring Provider Family Medicine; Visit Provider Family Medicine
DX: Q14.8 Other congenital malformations of posterior segment of eye (principal); M75.41 Impingement syndrome of right shoulder
CPT/HCPCS: 97110; 97161; 97164; 97530

== ENCOUNTER → 2023-01-15 | Outpatient (CLI) | payer BC, SELFPAY ==
--- NOTE | 2023-01-15 13:45 | BI_ITS ---
MAMMOGRAPHY - BILATERAL SCREENING REASON FOR EXAM: Female, 62 years old. Routine annual screening examination. PERTINENT HISTORY: Aunt with breast cancer. TECHNIQUE: Digital bilateral breast dexter (3D mammographic acquisition) in the CC and MLO projections. 2-D mediolateral oblique (MLO) and craniocaudad (CC) views of both breasts were obtained. CAD: Full Field Digital Mammography with Computer Added Detection was performed. COMPARISON: Comparison is made with prior study dated January 11, 2022 and December 29, 2020. FINDINGS: Breast Composition: The breasts are heterogeneously dense, which may obscure small masses. There are no dominant masses or suspicious calcifications. No other significant abnormalities are identified. There has been no significant change since the prior study. BI/SCRN MAMM (CAD)W/DEXTER BILAT IMPRESSION: Stable bilateral screening mammogram. Yearly follow-up mammogram recommended. (A) ASSESSMENT CATEGORY: BIRADS Category 1: Negative. A letter regarding these results will be sent to the patient by the facility within 30 days. Approximately 10% of breast cancers are not detected by mammography. A normal mammogram should not delay biopsy of a clinically suspicious abnormality. [id number] Electronically Signed: Get Hidalgo MD at 14:45 EDT ,
[2023-01-18 14:09] LABS: HPV APTIMA, High Risk Negative (Negative)
== END | disposition home or self-care (01) ==
PROVIDERS: PCP Family Medicine; Referring Provider Nurse Practitioner Women's Health; Visit Provider Nurse Practitioner Women's Health
DX: Z12.31 Encounter for screening mammogram for malignant neoplasm of breast (principal); N95.0 Postmenopausal bleeding; Z80.3 Family history of malignant neoplasm of breast
CPT/HCPCS: 77063; 77067; 87624; 88175; G0145

== ENCOUNTER → 2023-02-04 | Outpatient (CLI) | payer BC, SELFPAY ==
[2023-02-04 08:27] LABS: CREATININE FINGERSTICK < 0.9 mg/dL (0.55-1.02); EGFR FINGERSTICK > 60.0000 mL/min (>60)
--- NOTE | 2023-02-04 08:30 | MRI_ITS ---
INDICATION: DIZZINESS, VISION PROBLEMS EXAMINATION: MRI - MR Brain WO/W Contrast TECHNIQUE: MRI examination of brain obtained with standard protocol including multiplanar multiecho imaging. MRI examination obtained with multiplanar multi echo pre and postcontrast imaging. Dedicated high-resolution imaging the posterior fossa also obtained. Pre and Postcontrast imaging obtained. IV Contrast Dosage and Agent: 17 mL Clariscan COMPARISON: CT of 11/02/2022. FINDINGS: HEMISPHERES, CEREBELLUM AND BRAINSTEM: 1. The cerebral parenchyma, ventricular system, subarachnoid spaces have normal configuration and density. There is a normal gyral pattern. There is normal rodriguez/white differentiation. No midline shift.. 2. The hemispheric white matter has normal appearance. No areas of abnormal fluid restriction or ischemic change. No areas of abnormal enhancement. 3. No intraparenchymal mass, hemorrhage, or acute territorial infarct. 4. The cerebellum, brainstem, basilar and suprasellar cisterns have normal appearance. No Chiari malformation. 5. Normal appearance the 7th and 8th cranial nerve complexes and IACs and memory is labyrinth bilaterally. No masses or abnormal enhancement. No evidence of soft tissue or fluid accumulation middle ear cavities or mastoid air cells. 6. No areas of abnormal contrast enhancement involving the cerebral parenchyma cerebellum or brainstem. PITUITARY: Infundibulum and pituitary have normal configuration. Midline structures appear normal. CSF SPACES: Appropriate for age. No hydrocephalus. Basal cisterns are patent. VESSELS: 1. There are normal flow voids noted in the great vessels at the skull base ORBITS AND PARANASAL SINUSES: 1. Both globes, extraocular muscles, optic nerves and retrobulbar fat appear unremarkable. 2. Paranasal sinuses are clear. BONY ELEMENTS: Bony elements of the cranial vault, facial skeleton and skull base have normal appearance. SCALP AND SOFT TISSUES: Normal appearance of the soft tissues of the scalp and the visualized face OTHER: None MRI/Brain W/WO Contrast IMPRESSION: 1. No intraparenchymal mass, hemorrhage, or acute territorial infarct. No areas of abnormal intraparenchymal or extra-axial contrast enhancement. 2. Normal appearance of the 7th and 8th cranial nerve complexes and IACs and membranous labyrinth without masses or abnormal enhancement nor evidence of soft tissue or fluid accumulation within the middle ear cavities or mastoid air cells. 3. No radiographically significant sinus disease. Electronically Signed: Martin Gray MD at 1:52 EDT ,
== END | disposition home or self-care (01) ==
LOC: MRI 07:55
PROVIDERS: PCP Family Medicine; Referring Provider Otolaryngology Otolaryngology/Facial Plastic Surgery; Visit Provider Otolaryngology Otolaryngology/Facial Plastic Surgery
DX: R42 Dizziness and giddiness (principal)
CPT/HCPCS: 70553; A9575

== ENCOUNTER → 2023-04-17 | Outpatient (CLI) | payer BC, SELFPAY | END | disposition home or self-care (01) | LOC: LABSPEC 09:33 | PROVIDERS: PCP Family Medicine; Visit Provider Nurse Practitioner Family | DX: N39.0 Urinary tract infection, site not specified (principal) | CPT/HCPCS: 87086; 87088; 87186 ==

== ENCOUNTER → 2023-04-18 | Outpatient (CLI) | payer BC, SELFPAY ==
[2023-04-18 07:57] LABS: Cholesterol 218 mg/dL (200); High Density Lipoprotein 63 mg/dL; Triglycerides 132 mg/dL; Very Low Density Lipoprotein 26 mg/dL (5-40)
== END | disposition home or self-care (01) ==
PROVIDERS: PCP Family Medicine; Referring Provider Internal Medicine Cardiovascular Disease; Visit Provider Internal Medicine Cardiovascular Disease
DX: R42 Dizziness and giddiness (principal)
CPT/HCPCS: 36415; 80061

== ENCOUNTER 2023-04-19 12:48 | Outpatient (CLI) | payer BC, SELFPAY ==
[2023-04-19 13:30] VITALS: BP 147/78; PULSE 66; RESP 16; TEMP 36.1; O2SAT 100; BMI 26.9
[2023-04-19] MEDS: DENOSUMAB 60 MG/ML SC (13:32)
== END 2023-04-19 12:49 | disposition home or self-care (01) ==
LOC: MEDOUTP 12:49
PROVIDERS: PCP Family Medicine; Referring Provider Internal Medicine Endocrinology, Diabetes & Metabolism; Visit Provider Internal Medicine Endocrinology, Diabetes & Metabolism
DX: M81.0 Age-related osteoporosis without current pathological fracture (principal)
CPT/HCPCS: 96372; J0897

== ENCOUNTER → 2023-05-06 | Outpatient (CLI) | payer BC, SELFPAY ==
--- NOTE | 2023-05-06 07:44 | ECHOCS_ITS ---
Reason For Study: Dizziness Procedure This was a 2D Doppler, Color Flow transthoracic echocardiogram. The study was technically difficult. Contrast injection was performed. Exam performed in department. Left Ventricle Normal LV size. Left ventricular systolic function is normal. The estimated ejection fraction is 65 %. Stage 1 diastolic dysfunction. No regional wall motion abnormalities noted. Right Ventricle Normal RV size. Normal systolic function. Atria Normal left atrium. Probable chiari network. Normal right atrium. Mitral Valve Normal mitral valve. Tricuspid Valve Normal tricuspid valve. Aortic Valve Trisinus/trileaflet aortic valve. Pulmonic Valve Normal pulmonic valve. Great Vessels Normal aortic root. The pulmonary artery is normal size. Normal inferior vena cava. Pericardium/Pleural No pericardial effusion. Medication 22 gauge I.V. with prn adaptor inserted into right arm. Diluted definity 1.5ml given slow IV push to enhance endocardial definition. Performed a rapid injection of agitated mix of 9 cc saline and 1cc air to assess for atrial septal defect. MMode/2D Measurements & Calculations LVIDd: 4.3 cm IVSd: 0.69 cm Ao root diam: 2.8 cm LVIDs: 2.8 cm LVPWd: 0.70 cm LA dimension: 3.4 cm RVDd: 3.0 cm FS: 34.2 % LAV(MOD-bp): 41.1 ml LVAd ap4: 28.6 cm2 SV(MOD-sp4): 60.5 ml LAV(MOD-bp) Indexed: 22.8 ml/m2 LVLd ap4: 7.4 cm LAV(MOD-sp2): 39.3 ml EDV(MOD-sp4): 94.3 ml LAV(MOD-sp4): 39.2 ml EDV(sp4-el): 93.8 ml LVAs ap4: 14.2 cm2 LVLs ap4: 5.2 cm ESV(MOD-sp4): 33.8 ml ESV(sp4-el): 32.8 ml EF(MOD-sp4): 64.1 % EF(sp4-el): 65.0 % SV(sp4-el): 61.0 ml LA A4 area: 15.5 cm2 RA A4 area: 13.1 cm2 TAPSE: 1.7 cm Time Measurements MV dec time: 0.21 sec Doppler Measurements & Calculations MV E max donnell: 60.9 cm/sec Lat Peak E' Donnell: 11.5 cm/sec Med Peak E' Donnell: 9.7 cm/sec MV A max donnell: 74.9 cm/sec E/E' lat: 5.3 E/E' med: 6.3 MV E/A: 0.81 MV V2 max: 82.1 cm/sec MV P1/2t max donnell: 76.5 cm/sec Ao V2 max: 104.8 cm/sec MV max P.7 mmHg MV P1/2t: 79.6 msec Ao max P.4 mmHg MV V2 mean: 44.8 cm/sec MV mean P.95 mmHg MV dec slope: 281.4 cm/sec2 MV V2 VTI: 28.4 cm MVA(P1/2t): 2.8 cm2 LV V1 max: 97.7 cm/sec PA V2 max: 98.9 cm/sec PI end-d donnell: 67.9 cm/sec LV V1 max P.8 mmHg ECHO/Echo Complete W/ Contrast Interpretation Summary Normal LV size. Left ventricular systolic function is normal. The estimated ejection fraction is 65 %. Stage 1 diastolic dysfunction. Contrast injection was performed. Ordering Physician: Figueroa Shultz Referring Physician: Meghan Barahona M.D. Performed By: Lv Mayer RCS
== END | disposition home or self-care (01) ==
PROVIDERS: PCP Family Medicine; Referring Provider Internal Medicine Cardiovascular Disease; Visit Provider Internal Medicine Cardiovascular Disease
DX: R42 Dizziness and giddiness (principal); I51.9 Heart disease, unspecified
CPT/HCPCS: 93306; Q9957; A4216; C8929

== ENCOUNTER 2023-10-18 13:40 | Outpatient (CLI) | payer BC, SELFPAY ==
[2023-10-18 13:45] VITALS: BP 128/81; PULSE 59; RESP 16; TEMP 35.7
[2023-10-18] MEDS: DENOSUMAB 60 MG/ML SC (13:47)
== END 2023-10-18 13:41 | disposition home or self-care (01) ==
LOC: MEDOUTP 13:40
PROVIDERS: PCP Family Medicine; Referring Provider Internal Medicine Endocrinology, Diabetes & Metabolism; Visit Provider Internal Medicine Endocrinology, Diabetes & Metabolism
DX: M81.0 Age-related osteoporosis without current pathological fracture (principal)
CPT/HCPCS: 96372; J0897

== ENCOUNTER → 2024-01-22 | Outpatient (CLI) | payer BC, SELFPAY ==
--- NOTE | 2024-01-22 13:23 | BI_ITS ---
MAMMOGRAPHY - BILATERAL SCREENING REASON FOR EXAM: Female, 63 years old. Routine annual screening examination. PERTINENT HISTORY: Mother with breast cancer. Aunt with breast cancer. TECHNIQUE: Digital bilateral breast dexter (3D mammographic acquisition) in the CC and MLO projections. 2-D mediolateral oblique (MLO) and craniocaudad (CC) views of both breasts were obtained. CAD: Full Field Digital Mammography with Computer Added Detection was performed. COMPARISON: Comparison is made with prior study dated 09/17/2022 and January 11, 2022. FINDINGS: Breast Composition: The breasts are heterogeneously dense, which may obscure small masses. There are no dominant masses or suspicious calcifications. No other significant abnormalities are identified. There has been no significant change since the prior study. BI/SCRN MAMM (CAD)W/DEXTER BILAT IMPRESSION: Stable bilateral screening mammogram. Yearly follow-up mammogram recommended. (A) ASSESSMENT CATEGORY: BIRADS Category 1: Negative. A letter regarding these results will be sent to the patient by the facility within 30 days. Approximately 10% of breast cancers are not detected by mammography. A normal mammogram should not delay biopsy of a clinically suspicious abnormality. [id number] Electronically Signed: Get Hidalgo MD at 14:14 EDT ,
== END | disposition home or self-care (01) ==
LOC: OPBI 13:23
PROVIDERS: PCP Family Medicine; Referring Provider Nurse Practitioner Women's Health; Visit Provider Nurse Practitioner Women's Health
DX: Z12.31 Encounter for screening mammogram for malignant neoplasm of breast (principal); Z80.3 Family history of malignant neoplasm of breast
CPT/HCPCS: 77063; 77067

== ENCOUNTER → 2024-02-18 | Outpatient (CLI) | payer BC, SELFPAY ==
[2024-02-18 17:58] LABS: Vitamin D,25 Hydroxy 39.9 ng/mL
[2024-02-18 18:16] LABS: ALB/GLOB Ratio 1.1 RATIO (0.9-2.4); AST(SGOT) 28 U/L (15-37); Alanine Aminotransfer ALT/SGPT 46 U/L (13-56); Alkaline Phosphatase 77 U/L (45-117); Anion Gap 6 (5-15); BUN 19 mg/dL (7-18); BUN/Creat Ratio 22.2 RATIO (10-20); Calcium,Total 9.3 mg/dL (8.5-10.1); Chloride 108 mmol/L (98-107); Creatinine, Serum 0.86 mg/dL (0.55-1.02); EST Glomerular Filtration Rate 71 mL/min (>60); Est Glom Filt Rate - Afr Amer 86 mL/min (>60); Globulin 3.6 g/dL (2.2-4.2); Glucose 91 mg/dL (74-106); Protein, Total 7.6 g/dL (6.4-8.2); Sodium Level 137 mmol/L (136-145); Thyroid Stim Hormone (TSH) 1.31 uIU/mL (0.358-3.74)
== END | disposition home or self-care (01) ==
LOC: LAB 15:37
PROVIDERS: PCP Family Medicine; Referring Provider Internal Medicine Endocrinology, Diabetes & Metabolism; Visit Provider Internal Medicine Endocrinology, Diabetes & Metabolism
DX: E55.9 Vitamin D deficiency, unspecified (principal); M81.0 Age-related osteoporosis without current pathological fracture
CPT/HCPCS: 36415; 80053; 82306; 84443

== ENCOUNTER → 2025-01-25 | Outpatient (CLI) | payer MEDICARE, OTHER, SELFPAY ==
--- NOTE | 2025-01-25 10:00 | BI_ITS ---
EXAM: SCRN MAMM (CAD)W/DEXTER BILAT DATE: 01/25/2025 CLINICAL HISTORY: F, Age 64 y/o , SCREENING FOR BREAST CANCER BREAST CANCER RISK ASSESSMENT: Has not been calculated. TECHNIQUE: SCRN MAMM (CAD)W/DEXTER BILAT COMPARISON: Prior exam(s) dated 01/22/2024 and 01/15/2023. FINDINGS: TISSUE DENSITY: The breast tissue is composed of scattered areas of fibroglandular density. Bilateral Breast Mammographic Findings: No suspicious masses, suspicious clustered microcalcifications, architectural distortion or secondary sign of malignancy is identified in either breast. Benign round microcalcifications are seen in the left breast. BI/SCRN MAMM (CAD)W/DEXTER BILAT IMPRESSION: Benign screening mammogram study. OVERALL FINAL ASSESSMENT BI-RADS 2: BENIGN RECOMMEND ANNUAL MAMMOGRAPHIC SCREENING. RECOMMENDATION: Routine annual follow-up in 1 Year A letter with findings and recommendations will be mailed to the patient. Reading Location: [id number]
== END | disposition home or self-care (01) ==
LOC: OPBI 09:45
PROVIDERS: PCP Family Medicine; Referring Provider Nurse Practitioner Women's Health; Visit Provider Nurse Practitioner Women's Health
DX: Z12.31 Encounter for screening mammogram for malignant neoplasm of breast (principal)
CPT/HCPCS: 77063; 77067

== ENCOUNTER → 2025-01-28 | Outpatient (CLI) | payer MEDICARE, OTHER, SELFPAY ==
--- OUTSIDE RECORDS SUMMARY | 2025-01-28 06:10 | XMS RPT_ITS | CCD ---
Author Organization [facility] Care Team Providers Care On Site Nurse Name Role Phone Dr. Meghan Barahona Primary Care Provider [phone] Meghan Barahona Referring Provider [phone] Machelle WATER PLANT OPERATOR, WATER PLANT OPERATOR-C Aida Attending Provider [phone] Dr. Yordy Stein Attending Provider [phone] Dr. Meghan Barahona Primary Care Provider Dr. Meghan Barahona Referring Provider [phone] Machelle WATER PLANT OPERATOR, LUISA-C Aida Attending Provider [phone] Dr. Yordy Stein Attending Provider [phone] Dr. Ester Fields Attending Provider Dr. Figueroa Shultz Attending Provider Dr. Meghan Barahona Primary Care Provider Dr. Meghan Barahona Referring Provider Dr. Ester Fields Attending Provider Dr. Meghan Barahona MD Primary Care Provider Dr. Meghan Barahona MD Referring Provider Dr. Yordy Stein MD Attending Provider Machelle MORAN-CAida Attending Provider Meghan Barahona Referring Unavailable Roma Min Attending Unavailable Meghan Barahona Primary Care Unavailable Meghan Barahona Referring Unavailable Meghan Barahona Primary Care Unavailable Yordy Stein Attending Unavailable Meghan Barahona Referring Unavailable Meghan Barahona Primary Care Unavailable Aida Carty Attending Unavailable Ester Fields Attending Unavailable Meghan Barahona Primary Care Unavailable Meghan Barahona Referring Unavailable Yordy Stein Attending Unavailable Meghan Barahona Primary Care Unavailable Yordy Stein Attending Unavailable Yordy Stein Referring Unavailable Meghan Barahona Primary Care Unavailable Meghan Barahona Primary Care Unavailable Aida Carty Attending Unavailable Aida Carty Referring Unavailable Allergies Allergy Classification Reported Allergen(s) Allergy Type Date of Onset Reaction(s) Facility (18 sources) Clindamycin Drug Allergy 2 Rash [facility] (18 sources) Doxycycline Drug Allergy 2 PT UNSURE OF REACTION [facility] (19 sources) Penicillins; Translations: [Penicillins] Allergy to substance 2 Anaphylaxis [facility] (16 sources) Alendronate Drug Allergy 2 Rash [facility] (1 source) Alendronate Drug Allergy 5 [facility] (1 source) Clindamycin Drug Allergy 5 [facility] (1 source) Doxycycline Drug Allergy 5 [facility] Medications Current Medications Medication Drug Class(es) Dates Sig (Normalized) Sig (Original) cholecalciferol 0.05 mg oral capsule (5 sources) Vitamin D Start: 03-28-2023 take 1 capsule by mouth once daily Cholecalciferol (Vitamin D3) 50 mcg (2,000 unit) capsule Active 100 ug PO DAILY March 28, 2023 12:00am 1 ml denosumab 60 mg/ml prefilled syringe (20 sources) RANK Ligand Inhibitor Start: 02-12-2022 End: 02-07-2023 Denosumab (Prolia) 60 mg/mL syringe Active 60 mg SC every 6 months February 07, 2023 9:07am Multivitamin preparation (4 sources) Start: 03-28-2023 take 1 tablet by mouth once daily Multivitamin Active 1 TABLET PO DAILY March 28, 2023 12:00am Multivitamin tablet (1 source) Start: 03-28-2023 Multivitamin tablet Active 1 {tbl} PO DAILY March 28, 2023 12:00am triamcinolone acetonide 0.001 mg/mg topical ointment (5 sources) Corticosteroid Start: 04-17-2023 Triamcinolone Acetonide 0.1 % ointment Active 1 NMA TOPICAL TWICE A DAY as needed for skin irritation April 17, 2023 12:00am Completed/Discontinued Medications Medication Drug Class(es) Dates Sig (Normalized) Sig (Original) calcium carbonate 1250 mg / cholecalciferol 1000 unt / vitamin k 0.4 mg chewable tablet (18 sources) Vitamin D Start: 12-17-2017 End: 03-28-2023 Calcium-Vitamin D3-Vitamin K 500 mg-1,000 unit-40 mcg tablet,chewable Discontinued 1 {tbl} PO DAILY December 17, 2017 12:00am March 28, 2023 8:41am Start: 12-17-2017 End: 03-28-2023 take 1 tablet by mouth once daily Calcium-Vitamin D3-Vitamin K Discontinued 1 TABLET PO DAILY December 17, 2017 12:00am March 28, 2023 8:41am Start: 12-17-2017 Calcium-Vitami n D3-Vitamin K Active TABLET PO December 17, 2017 12:00am ciprofloxacin 250 mg oral tablet (5 sources) Quinolone Antimicrobial Start: 04-17-2023 End: 02-10-2024 take 1 tablet by mouth twice daily Ciprofloxacin Hcl 250 mg tablet Discontinued 250 mg PO TWICE A DAY April 17, 2023 12:00am February 10, 2024 9:28am for 5 days hydrocortisone 25 mg/ml topical cream (20 sources) Corticosteroid Start: 12-26-2018 End: 06-17-2020 Hydrocortisone (Proctosol Hc) 2.5 % cream with perineal applicator Discontinued 1 NMA RC 1 to 2 times per day as needed for hemorrhoids December 26, 2018 12:00am June 17, 2020 3:03pm Start: 12-23-2017 End: 12-26-2018 Hydrocortisone (Proctosol Hc ) 2.5 % cream with perineal applicator Discontinued 1 NMA RC 2 to 4 times per day as needed for hemorrhoids December 23, 2017 12:00am December 26, 2018 1:15pm metoclopramide 10 mg oral tablet (9 sources) Dopamine-2 Receptor Antagonist Start: 11-02-2022 End: 01-15-2023 take 1 tablet by mouth every six hours as needed for nausea Metoclopramide Hcl 10 mg tablet Discontinued 10 mg PO EVERY 6 HOURS as needed for nausea or migraine November 02, 2022 7:15am January 15, 2023 1:15pm nitrofurantoin, macrocrystals 25 mg / nitrofurantoin, monohydrate 75 mg oral capsule (18 sources) Nitrofuran Antibacterial Start: 01-10-2022 End: 01-17-2022 take 1 capsule by mouth twice daily at mealtime Nitrofurantoin Monohyd/M-Cryst (Macrobid) 100 mg capsule Discontinued 100 mg PO TWICE A DAY 14 January 10, 2022 12:00am January 16, 2022 12:00am January 17, 2022 12:03am must administer with a meal/food Problems Problem Classification Problem Date Documented Da te Episodic/Chronic Conditions associated with dizziness or vertigo (8 sources) Dizziness; Translations: [Dizziness and giddiness] 04-17-2023 Episodic Headache; including migraine (9 sources) Acute headache; Translations: [Acute headache] 11-02-2022 Episodic Intracranial injury (8 sources) Concussion injury of body structure; Translations: [Concussion] 03-25-2023 Episodic Menopausal disorders (14 sources) Atrophic vaginitis; Translations: [Postmenopausal atrophic vaginitis] Onset: 01-25-2025 01-15-2023 Chronic Comment on above: not problematic Nutritional deficiencies (20 sources) Vitamin D deficiency; Translations: [Vitamin D deficiency, unspecified] Onset: 01-01-2025 Chronic Osteoporosis (20 sources) Osteoporosis; Translations: [Age-related osteoporosis without current pathological fracture] Onset: 01-01-2025 Chronic Comment on above: Dr Stein Other bone disease and musculoskeletal deformities (2 sources) Osteopenia; Translations: [Other specified disorders of bone density and structure, unspecified site] Episodic Other bone disease and musculoskeletal deformities (2 sources) Other specified disorders of bone density and structure, unspecified site; Translations: [Disorder of bone and cartilage, unspecified] Episodic Other bone disease and musculoskeletal deformities (20 sources) Segmental and somatic dysfunction; Translations: [Segmental and somatic dysfunction of cervical region] 02-25-2023 Episodic Other bone disease and musculoskeletal deformities (20 sources) Segmental and somatic dysfunction of cervical region; Translations: [Nonallopathic lesions, cervical region] 02-25-2023 Episodic Other bone disease and musculoskeletal deformities (20 sources) Segmental and somatic dysfunction of lumbar region; Translations: [Nonallopathic lesions, lumbar region] 02-25-2023 Episodic Other bone disease and musculoskeletal deformities (20 sources) Segmental and somatic dysfunction of pelvic region; Translations: [Nonallopathic lesions, pelvic region] 02-25-2023 Episodic Other bone disease and musculoskeletal deformities (20 sources) Segmental and somatic dysfunction of thoracic region; Translations: [Nonallopathic lesions, thoracic region] 02-25-2023 Episodic Other screening for suspected conditions (not mental disorders or infectious disease) (1 source) Encounter for screening mammogram for malignant neoplasm of breast; Translations: [Encounter for screening mammogram for malignant neoplasm of breast] Onset: 01-25-2025 Episodic Residual codes; unclassified (18 sources) Family history of malignant neoplasm of breast in first degree relative; Translations: [Family history of malignant neoplasm of breast] 12-29-2019 Episodic Comment on above: patient negative gen etic screen 4 maternal aunts also with breast CA Residual codes; unclassified (12 sources) Family history of malignant neoplasm of breast; Translations: [Family history of malignant neoplasm of breast] Episodic Spondylosis; intervertebral disc disorders; other back problems (20 sources) Backache; Translations: [Dorsalgia, unspecified] 02-25-2023 Episodic Urinary tract infections (5 sources) Urinary tract infection, site not specified; Translations: [Urinary tract infection, site not specified] Episodic Results Test Name Value Interpretation Reference Range Facility Pin Puller Office Visit Reporton 01-25-2025 Pin Puller Office Visit Report [facility]'[address], [address] [place] [address] OFFICE VISIT Date of Service: 01/25/25 MR#: [id number] Acct: [id number] Name: TREVOR MARI Rep #: [id number] : 1960 Provider: JOCY thrasher Age/Sex: 64/F [place] [facility] [place]: Signed Intake Vital Signs 02/10/24 09:25 10/20/24 13:43 01/25/25 07:55 01/25/25 08:01 Height 5 ft 5 in 5 ft 5 in 5 ft 5 in 5 ft 5 in Weight: 161 lb 164 lb 2 oz BMI 26.8 27.3 BP 148/68 H 140/84 H Blood Pressure Location Rt brachial Position Sitting Pulse 72 Pulse Source Monitor Pulse Oximetry (%) 95 Oxygen Delivery Method room air 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 Is patient in pain?: No Allergies Penicillins Allergy (Severe, Verified 01/25/25 08:15) Anaphylaxis alendronate sodium Allergy (Intermediate, Verified 01/25/25 08:15) Rash clindamycin Allergy (Intermediate, Verified 01/25/25 08:15) Rash doxycycline Allergy (Intermediate, Verified 01/25/25 08:15) PT UNSURE OF REACTION Medications ???Medication ???Instructions ???Recorded ???Confirmed ???Type Prolia 60 mg/mL subcutaneous 60 mg subcut [id number] #1 mL 01/25/25 Rx syringe (denosumab) cholecalciferol (vitamin D3) 50 100 mcg PO DAILY 03/28/23 01/25/25 History mcg (2,000 unit) capsule multivitamin 1 tab PO DAILY 03/28/23 01/25/25 H istory triamcinolone acetonide 0.1 % 1 applic topical BID PRN skin 04/0501/25/25 History topical ointment irritation Is last menstrual period known: No Post menopausal: Yes Patient : No : No PFSH Medical History (Updated 01/25/25 @ 08:28 by Aida Carty WATER PLANT OPERATOR, WATER PLANT OPERATOR-C) Dizziness Vitamin D deficiency Osteoporosis Surgical History S/P appendectomy History of Family History Mother Breast cancer CVA (cerebral vascular accident) Aunt Breast cancer Father Larynx cancer Social History (Updated 01/25/25 @ 08:27 by Aida Carty NP, WATER PLANT OPERATOR-C) current occupational status: retired Smoking Status: Former smoker alcohol intake: current details: 1 glass of wine nightly substance use type: does not use caffeine: Yes Type: coffee Number of servings: 1 what type of physical activity do you participate in: none seatbelt use: always do you feel safe at home: Yes additional social history: - Rolf- retired [employer] Patient retired [employer] History 1 Elective abortions Hx Para 1 Spontaneous abortions Hx # Term Pregnancies Ectopic pregnancies Hx # Pregnancies Multiple births # of living children Past Pregnancies Del. Date Name GA/Weeks Outcome Route Bth Weight Infant Gen Labor Lgth Anesthesia Del Locatn Provider FOB Unknown HPI Encounter for routine gynecological examination Details: TREVOR THOMPSON is a 64 year old who presents for annual exam. Last PAP: 2022 History of abnormal PAP: no Last mammogram: today pending History of abnormal mammogram: no Colon cancer screenin Other preventative health care screenings: Isabel[place] Female Reproductive History Questions: metorrhagia: No and sexually active: No ROS Const Constitutional: Denies fatigue, weight gain or weight loss Cardio Card: Denies chest pain Resp Resp: Denies cough or dyspnea on exertion GI GI: Denies abdominal pain, bloating, change in stool character, constipation or vomiting : Reports as per HPI; Denies difficulty voiding, pelvic pain, urinary frequency, urinary incontinence, urinary urgency, vaginal discharge or vaginal pruritus Exam Const General: cooperative, healthy appearing, no acute distress and well developed Orientation: alert, oriented to person and oriented to place HENMT Head: normal to inspection Neck Neck: normal visual inspection Thyroid: thyroid normal Lymphatic: no lymphadenopathy noted Chest Breast inspection: normal inspection of the breasts and normal inspection of the axillae Breast palpation: normal palpation of the breasts, normal palpation of the axillae and no axillary lymphadenopathy Resp Effort Inspection: normal respiratory effort GI Palpation: soft, no masses and nontender Rectal Exam: deferred External Female Exam: normal external appearance and normal appearance of the urethra Urethra: normal appearance of the urethra and normal palpation Speculum Exam - Vagina: normal vaginal discharge and vagina atrophic (small introitus) Speculum Exam - Cervix: normal appearance of the cervix Bimanual Exam- Vagina Uterus: normal bimanual exam, uterine size normal, uterine shape normal and no (more content not included)... Normal [facility] SCRN MAMM (CAD)W/DEXTER BILNohemi n 01-25-2025 SCRN MAMM (CAD)W/DEXTER BILAT [facility] [address] [place], [place] [id number] SCRN MAMM (CAD)W/DEXTERJacob WALKER MR#: [id number] Acct: [id number] Name: TREVOR MARI Rep #: [id number] : 1960 F 64 From: Scarlett James PCP: Dr. Meghan Barahona MD Status: REG CLI Study: SCRN MAMM (CAD)W/DEXTER BILAT Date of Exam: 01/04 10/27 Exam# [id number] Ordering Dr: Aida Carty NP WATER PLANT OPERATOR -C EXAM: SCRN MAMM (CAD)W/DEXTER BILAT DATE: 01/25/2025 CLINICAL HISTORY: F, Age 64 y/o , SCREENING FOR BREAST CANCER BREAST CANCER RISK ASSESSMENT: Has not been calculated. TECHNIQUE: SCRN MAMM (CAD)W/DEXTER BILAT COMPARISON: Prior exam(s) dated 01/22/2024 and 01/15/2023. FINDINGS: TISSUE DENSITY: The breast tissue is composed of scattered areas of fibroglandular density. Bilateral Breast Mammographic Findings: No suspicious masses, suspicious clustered microcalcifications, architectural distortion or secondary sign of malignancy is identified in either breast. Benign round microcalcifications are seen in the left breast. BI/SCRN MAMM (CAD)W/DEXTER BILAT IMPRESSION: Benign screening mammogram study. OVERALL FINAL ASSESSMENT BI-RADS 2: BENIGN RECOMMEND ANNUAL MAMMOGRAPHIC SCREENING. RECOMMENDATION: Routine annual follow-up in 1 Year A letter with findings and recommendations will be mailed to the patient. Reading Location: [id number] CC: WATER PLANT OPERATOR-C Aida Carty; Dr. Meghan Barahona MD Adding Machine Servicer: Signed Normal [facility] Endocrinology Visit Reporton 10-20-2024 Endocrinology Visit Report [facility] [address] [place] [address] OFFICE VISIT Date of Service: 10/20/24 MR#: [id number] Acct: [id number] Name: TREVOR MARI Rep #: [id number] : 1960 Provider: Sara Sy Age/Sex: 64/F Location: [facility] [place] Status: Signed Intake Vital Signs 02/10/24 09:25 10/20/24 13:43 Height 5 ft 5 in 5 ft 5 in Weight: 156 lb 161 lb BMI 25.9 26.8 BP 129/87 H 148/68 H Blood Pressure Location Lt brachial Rt brachial Position Sitting Sitting Pulse 88 72 Pulse Source Monitor Monitor Pulse Oximetry (%) 98 95 Oxygen Delivery Method room air room air Intake Visit Reasons: 9 M FU/Prolia - B B Chief Complaint: Osteoporosis Is patient in pain?: No Allergies Penicillins Allergy (Severe, Verified 10/20/24 13:45) Anaphylaxis alendronate sodium Allergy (Intermediate, Verified 10/20/24 13:45) Rash clindamycin Allergy (Intermediate, Verified 10/20/24 13:45) Rash doxycycline Allergy (Intermediate, Verified 10/20/24 13:45) PT UNSURE OF REACTION Medications ???Medication ???Instructions ???Recorded ???Confirmed ???Type Prolia 60 mg/mL subcutaneous 60 mg subcut [id number] #1 mL 10/20/24 Rx syringe (denosumab) cholecalciferol (vitamin D3) 50 100 mcg PO DAILY 03/28/23 10/20/24 History mcg (2,000 unit) capsule multivitamin 1 tab PO DAILY 03/28/23 10/20/24 H istory triamcinolone acetonide 0.1 % 1 applic topical BID PRN skin 04/0510/20/24 History topical ointment irritation Have you fallen in the past year?: No PFSH Medical History Dizziness Vitamin D deficiency Osteoporosis Surgical History S/P appendectomy History of Family History Mother Breast cancer CVA (cerebral vascular accident) Aunt Breast cancer Father Larynx cancer Social History Smoking Status: Former smoker alcohol intake: current details: 1 glass of wine nightly substance use type: does not use caffeine: Yes Type: coffee Number of servings: 1 what type of physical activity do you participate in: none seatbelt use: always do you feel safe at home: Yes 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 She has t-score of -2.5 She has been taking Prolia for 3 years. No falls. She is feeling well. She is due for labs in February. ROS Const Constitutional: No fatigue or weight change ENT ENT: No dizziness/vertigo Cardio Cardiology: No chest pain at rest, chest pain with exertion, shortness of breath or palpitations Skin Skin: No wounds Endo Endocrine: No fatigue or weight change Exam Const General: cooperative, healthy appearing, comfortable, no acute distress, well developed and not cushingoid Nutritional Appearance: well nourished Orientation: alert, awake and oriented x3 HENMT Head: normal to inspection Ears: hearing grossly normal bilaterally Nose: external nose normal Mouth: oral mucosae normal Eyes General: appearance normal, both eyes and all related structures Alignment and Position: alignment normal Periorbital: periorbital findings normal Eyelids: eyelids normal Conjunctivae: conjunctivae normal Neck Neck: normal visual inspection Neck mass: No Lymphatic: no lymphadenopathy noted Chest Chest palpation inspection: normal inspection of the chest Resp Effort Inspection: normal respiratory effort, able to speak in complete sentences, symmetric chest movement, no audible wheezes and no cough Cardio Rate: regular rate Rhythm: regular rhythm Pulses: posterior tibial pulses present Skin General: no rashes or lesions noted Neuro General: patient alert, patient awake and patient oriented x3 Cranial Nerves: CN's II-XI intact bilaterally Cognition: normal cognition Speech: speech normal Gait: normal gait Motor: muscle tone normal throughout Extrem General: no edema Psych Appearance: grossly normal Mental Status: mental status grossly normal Mood: congruent mood Affect: normal affect Speech and Movement: speech and movement normal Attitude: cooperative Thought Process: normal Thought Content: normal Judgment: judgment good Office Procedures Injections Procedure performed by: Keon Lundberg Lot number: [id number] Concrete Inspector: [employer] Stevenson date: 02/01/27 Dose of injection: 1 mL Site of injection: Sub (more content not included)... Normal [facility] Office Visit Reporton 2023 Office Visit Report [facility] [address] [place] [address] OFFICE VISIT Date of Service: 04/30/24 MR#: [id number] Acct: [id number] Patient: TREVOR MARI Rep #: [id number] : 1960 Provider: JOCY ibanez Age/Sex: 64/F Location: [facility] [place] Status: Signed Intake Vital Signs 02/10/24 09:25 Height 5 ft 5 in Weight: 156 lb BMI 25.9 BP 129/87 H Blood Pressure Location Lt brachial Position Sitting Pulse 88 Pulse Source Monitor Pulse Oximetry (%) 98 Oxygen Delivery Method room air Intake Visit Reasons: PROLIA B B Chief Complaint: Osteoporosis Allergies Penicillins Allergy (Severe, Verified 02/10/24 09:27) Anaphylaxis alendronate sodium Allergy (Intermediate, Verified 02/10/24 09:27) Rash clindamycin Allergy (Intermediate, Verified 02/10/24 09:27) Rash doxycycline Allergy (Intermediate, Verified 02/10/24 09:27) PT UNSURE OF REACTION Have you fallen in the past year?: No Office Procedures Injections Procedure performed by: Chanel Swenson Lot number: [id number] Concrete Inspector: [employer] date: 10/02/26 Dose of injection: 1 mL Site of injection: Sub-Q Medication Given: Yes Is this a patient provided medication?: No Office Meds Prolia 60 mg/mL subcutaneous syringe Performing Provider: JOCY Ramos Performing Location: [facility] Administered by: Keon Lundberg RN on 04/30/24 14:05 Dose Route Admin Location Dispensed Lot Number Expiration Date [facility] Man ufacturer 60 mg subcut R Arm 1 mL [id number] 10/02/26 44007-323-84 [employer] Assessment and Plan Assessment and Plan (1) Osteoporosis: Status: Chronic Qualifiers: Osteoporosis type: age-related Presence of current pathological fracture: without current pathological fracture Qualified Code(s): M81.0 - Age-related osteoporosis without current pathological fracture Orders: Orders Prolia Injection 04/30/24 M81.0 - Age-related osteoporosis without current pathological fracture Plan Details Goals Barriers: Goals Decrease spasm Decrease pain Improve ability to perform 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, [address] Albumin/Globulin [Mass ratio] 1.1 {ratio} Normal 0.9-2.4 [facility] Comment on above: Performed By: #### L 506.1000, L501.9520, L500.4050 #### [facility] [address] [place], [address] ALK P 77 U/L Normal 45-117 [facility] Comment on above: Performed By: #### L 506.1000, L501.9520, L500.4050 #### [facility] [address] [place], [address] ALT [Catalytic activity/Vol] 46 U/L Normal 13-56 [facility] Comment on above: Performed By: #### L 506.1000, L501.9520, L500.4050 #### [facility] [address] [place], [address] AST [Catalytic activity/Vol] 28 U/L Normal 15-37 [facility] Comment on above: Performed By: #### L 506.1000, L501.9520, L500.4050 #### [facility] [address] [place], [address] Bilirubin [Mass/Vol] 1.80 mg/dL High 0.20-1.00 [facility] Comment on above: Result Comment: For patients on eltrombopag therapy, use of Dimension [place] TBIL is not recommended. Performed By: #### L 506.1000, L501.9520, L500.4050 #### [facility] [address] [place], [address] BUN/CRE 22.2 RATIO High 10-20 [facility] Comment on above: Performed By: #### L 506.1000, L501.9520, L500.4050 #### [facility] [address] [place], [address] CA,Total 9.3 mg/dL Normal 8.5-10.1 [facility] Comment on above: Performed By: #### L 506.1000, L501.9520, L500.4050 #### [facility] [address] [place], [address] Chloride [Moles/Vol] 108 mmol/L High 98-107 [facility] Comment on above: Performed By: #### L 506.1000, L501.9520, L500.4050 #### [facility] [address] [place], [address] CO2 [Moles/Vol] 23.0 mmol/L Normal 21.0-32.0 [facility] Comment on above: Performed By: #### L 506.1000, L501.9520, L500.4050 #### [facility] [address] [place], [address] Creatinine [Mass/Vol] 0.86 mg/dL Normal 0.55-1.02 [facility] Comment on above: Result Comment: The validity of the calculated GFR GFRAA in patients over 70 years has not been determined. Clinical correlation is essential. Performed By: #### L 506.1000, L501.9520, L500.4050 #### [facility] [address] [place], [address] EST GFR - AA 86 mL/min Normal >60 [facility] Comment on above: Result Comment: Afri can [place] GFR Calc Performed By: #### L 506.1000, [id number], L500.4050 #### [facility] [address] [place], [address] GAP 6 Normal 5-15 [facility] Comment on above: Performed By: #### L 506.1000, [id number], L500.4050 #### [facility] [address] [place], [address] GFR/1.73 sq M.predicted among non-blacks MDRD (S/P/Bld) [Vol rate/Area] 71 mL/min/{1.73_m2} Normal >60 [facility] Comment on above: Result Comment: Non- GFR Calc Performed By: #### L 506.1000, [id number], L500.4050 #### [facility] [address] [place], [address] Globulin (S) [Mass/Vol] 3.6 g/dL Normal 2.2-4.2 [facility] Comment on above: Performed By: #### L 506.1000, [id number], L500.4050 #### [facility] [address] [place], [address] Glucose [Mass/Vol] 91 mg/dL Normal 74-106 [facility] Comment on above: Performed By: #### L 506.1000, [id number], L500.4050 #### [facility] [address] [place], [address] Potassium [Moles/Vol] 4.0 mmol/L Normal 3.5-5.1 [facility] Comment on above: Performed By: #### L 506.1000, [id number], L500.4050 #### [facility] [address] [place], [address] Sodium [Moles/Vol] 137 mmol/L Normal 136-145 [facility] Comment on above: Performed By: #### L 506.1000, [id number], L500.4050 #### [facility] [address] [place], [address] T PROT 7.6 g/dL Normal 6.4-8.2 [facility] Comment on above: Performed By: #### L 506.1000, [id number], L500.4050 #### [facility] [address] [place], [address] Urea nitrogen [Mass/Vol] 19 mg/dL High 7-18 [facility] Comment on above: Performed By: #### L 506.1000, [id number], L500.4050 #### [facility] [address] [place], [address] Thyroid Stim Hormone (TSH)on 02-18-2024 TSH 1.31 uIU/mL Normal 0.358-3.74 [facility] Comment on above: Performed By: #### L 506.1000, [id number], L500.4050 #### [facility] [address] [place], [address] Vitamin D,25 Hydroxyon 02-17 Vitamin D 25-OH 39.9 ng/mL Normal [facility] Comment on above: Result Comment: Jennifer min D 25(OH) Status Range Deficiency <20 ng/mL (50nmol/L) Insufficiency 20 - 30 ng/mL (50 - 75 nmol/L) Sufficiency 30 - 100 ng/mL (75 - 250 nmol/L) Toxicity >100 ng/mL (>250 nmol/L) Performed By: #### L 506.1000, [id number], L500.4050 #### [facility] [place], [address] Endocrinology Visit Reporton 02-10-2024 Endocrinology Visit Report [facility] [address] [place] [address] OFFICE VISIT Date of Service: 02/10/24 MR#: [id number] Acct: [id number] Name: TREVOR MARI Rep #: [id number] : 1960 Provider: Sara Sy Age/Sex: 63/F Location: [facility] Status: Signed Intake Vital Signs 02/07/23 09:02 01/22/24 13:09 02/10/24 09:25 Height 5 ft 5 in 5 ft 5 in 5 ft 5 in Weight: 156 lb BMI 25.9 BP 129/87 H Blood Pressure Location Lt brachial Position Sitting Pulse 88 Pulse Source Monitor Pulse Oximetry (%) 98 Oxygen Delivery Method room air Intake Visit Reasons: 1 Y FU Chief Complaint: Osteoporosis Machine Skiver Required: No Accompanied by: Self Is patient in pain?: No Allergies Penicillins Allergy (Severe, Verified 02/10/24 09:27) Anaphylaxis alendronate sodium Allergy (Intermediate, Verified 02/10/24 09:27) Rash clindamycin Allergy (Intermediate, Verified 02/10/24 09:27) Rash doxycycline Allergy (Intermediate, Verified 02/10/24 09:27) PT UNSURE OF REACTION Medications ???Medication ???Instructions ???Recorded ???Confirmed ???Type Prolia 60 mg/mL subcutaneous 60 mg subcut [id number] #1 mL 02/07/23 02/10/24 Rx syringe (denosumab) cholecalciferol (vitamin D3) 50 100 mcg PO DAILY 03/28/23 02/10/24 History mcg (2,000 unit) capsule multivitamin 1 tab PO DAILY 03/28/23 02/10/24 History triamcinolone acetonide 0.1 % 1 applic topical BID PRN skin 04/17/23 02/10/24 History topical ointment irritation PFSH Medical History Dizziness Vitamin D deficiency Osteoporosis Surgical History S/P appendectomy History of Family History Mother Breast cancer CVA (cerebral vascular accident) Aunt Breast cancer Father Larynx cancer Social History Smoking Status: Former smoker alcohol intake: current details: 1 glass of wine nightly substance use type: does not use caffeine: Yes Type: coffee Number of servings: 1 what type of physical activity do you participate in: none seatbelt use: always do you feel safe at home: Yes additional social history: - 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 Female Reproductive History Menstrual Date of menopause: 08/05/07 HPI HPI Chief Complaint: Osteoporosis Details: TREVOR THOMPSON, is a 63 F who presents to the office today for follow up. She has t-score of -2.5 She has been taking Prolia for 2 years. No falls. She is feeling well. She is due for labs. Exam Const General: cooperative, healthy appearing, comfortable, no acute distress, well developed and not cushingoid Nutritional Appearance: well nourished Orientation: alert, awake and oriented x3 HENMT Head: normal to inspection Ears: hearing grossly normal bilaterally Nose: external nose normal Mouth: oral mucosae normal Eyes General: appearance normal, both eyes and all related structures Alignment and Position: alignment normal Periorbital: periorbital findings normal Eyelids: eyelids normal Conjunctivae: conjunctivae normal Neck Neck: normal visual inspection Neck mass: No Thyroid: asymmetrical (full on left) Lymphatic: no lymphadenopathy noted Chest Chest palpation inspection: normal inspection of the chest Resp Effort Inspection: normal respiratory effort, able to speak in complete sentences, symmetric chest movement, no audible wheezes and no cough Auscultation: Bilateral: Clear to Auscultation Cardio Rate: regular rate Rhythm: regular rhythm Pulses: posterior tibial pulses present GI Inspection: normal to inspection Skin General: no rashes or lesions noted Neuro General: patient alert, patient awake and patient oriented x3 Cranial Nerves: CN's II-XI intact bilaterally Cognition: normal cognition Speech: speech normal Gait: normal gait Motor: muscle tone normal throughout Extrem General: no edema Psych Appearance: grossly normal Mental Status: mental status grossly normal Mood: congruent mood Affect: normal affect Speech and Movement: speech and movement normal Attitude: cooperative Thought Process: normal Thought Content: normal Judgment: judgment good Coding Level of Care Code Off vis,est,level 4 Extra Time Spent Extra Time Spent Extra Time Spent: G2211 Diagnoses Age-related osteoporosis without current pathological fracture M81.0 Osteoporosis type: age-related Presence of current pathological fracture: without current pathological fracture Additional Codes Extra Time Spent - Extra Time Spent: G2211 (G2211) Ass (more content not included)... Normal [facility] Basophil percentageOrdered B y: Figueroa Shultz on 04-18-2023 Cholesterol [Mass/Vol] 218 mg/dL <200 [facility] Comment on above: <200 mg/dL Desirable 200-240 mg/dL Borderline >240 mg/dL High Risk Triglyceride [Mass/Vol] 132 mg/dL <199 [facility] Comment on above: The drugs N-Acetylcy steine and Metamizole may falsely depress this assay.Serum Triglycerides Reference Interval Normal <150 mg/dL Borderline high 150 - 199 mg/dL High 200 - 499 mg/dL Very High > or = 500 mg/dL Serum or plasma cholesterol in HDL measurement (mass/volume)Ordered By: Figueroa Shultz on 04-18-2023 Cholesterol in HDL [Mass/Vol] 63 mg/dL >40 [facility] Comment on above: The drugs N-Acetylcy steine and Metamizole may falsely depress this assay. Reference Range HDL <40 mg/dL Low HDL Cholesterol HDL >or= 60 mg/dL High HDL Cholesterol Serum or plasma cholesterol in VLDL measurement (mass/volume)Ordered By: Figueroa Shultz on 04-18-2023 Cholesterol in VLDL [Mass/Vol] 26 mg/dL 5-40 [facility] Serum or plasma low density lipoprotein (LDL) cholesterol measurement (mass/volume)Ordered By: Figueroa Shultz on 04-18-2023 Cholesterol in LDL [Mass/Vol] 129 mg/dL 0-130 [facility] Culture, urineOrdered By: Kelli Melendez on 04-17-2023 Bacteria identified Cx Nom (U) Presumptive E. coli [facility] Basophil percentageOrdered B y: Eugene Thurman on 02-04-2023 Basophil percentage < 0.9 mg/dL 0.55-1.02 [facility] No Panel InformationOrdered By: Eugene Thurman on 02-04-2023 Bedside Estimated GFR (eGFR) > 60.0000 mL/min >60 [facility] Cervical or vagninal specime n microscopic examination by cytology stain (reported asOrdered By: Aida Carty on 01-15-2023 Cytology report Cyto stain Doc (Cvx/Vag) Comment . [facility] Comment on above: The Pap smear is a s creening test designed to aid in thedetection of premalignant and malignant conditions of theuterine cervix. It is not a diagnostic procedure andshould not be used as the sole means of detecting cervicalcancer. Both false-positive and false-negative reports dooccur. Detection in cervical specim en of any of human papilloma virus (HPV) 16, 18, 31, 33,Ordered By: Aida Carty on 01-15-2023 HPV 16+18+31+33+35+39+45+5 1+52+56+58+59+66+68 DNA Probe+sig amp Ql (Cvx) Negative Negative [facility] Comment on above: This nucleic acid am plification test detects fourteen high- risk HPV types (16,18,31,33,35,39,45,51,52,56,58,59,66,68)without differentiation. Laboratory - CytologyOrdered By: Aida Carty on 01-15-2023 Property Man Cyto stain Nom (Cvx/Vag) [ID] Comment . [facility] Comment on above: Juan Enriquez totechnologist Laboratory - Miscellaneous t estsOrdered By: Aida Carty on 01-15-2023 Service comment (Unsp spec) [Interp] Comment . [facility] Comment on above: This liquid based Th inPrep(R) pap test was screened withthe use of an image guided system. Service comment (Unsp spec) [Interp] . . [facility] Liquid-based cerv Pap + CT/G C by JENIFER w reflex to high-risk HPV for ASCUSOrdered By: Aida Carty on 01-15-2023 Cytology report Cyto stain.thin prep Doc (Cvx/Vag) Comment . [facility] Comment on above: Criteria not met, HP V Genotype not performed.Performed at: - [facility] [id number] Director: Alvina Duenas MD, Phone: [phone] at: = - [facility] [id number] Director: Alvina Duenas MD, Phone: [phone] No Panel InformationOrdered By: Aida Carty on 01-15-2023 Pathology report final diagnosis Narrative Comment . [facility] Comment on above: NEGATIVE FOR INTRAEP ITHELIAL LESION OR MALIGNANCY. Absolute lymphocyte countOrd ered By: Dr. Medina on 10-18-2022 Lymphocytes Auto (Unsp spec) [#/Vol] 2.74 10*3/uL 0.83-4.51 [facility] Basophil percentageOrdered B y: Dr. Medina on 10-18-2022 Basophils/100 WBC (Bld) 0.4 % 0-1 [facility] Bilirubin [Mass/Vol] 1.20 mg/dL 0.20-1.00 [facility] Comment on above: For patients on eltr ombopag therapy, use of Dimension [place] TBIL is not recommended. Chloride [Moles/Vol] 107 mmol/L 98-107 [facility] Eosinophils/100 WBC (Bld) 2.9 % 0-5 [facility] Glucose [Mass/Vol] 87 mg/dL 74-106 [facility] Neutrophils (Bld) [#/Vol] 3.3 10*3/uL 2.0-7.7 [facility] Neutrophils/100 WBC (Bld) 48.2 % 47-70 [facility] Potassium [Moles/Vol] 3.8 mmol/L 3.5-5.1 [facility] Protein [Mass/Vol] 7.6 g/dL 6.4-8.2 [facility] Sodium [Moles/Vol] 140 mmol/L 136-145 [facility] WBC (Bld) [#/Vol] 6.9 10*3/uL 4.4-11.0 [facility] Blood erythrocytes count (nu mber/volume)Ordered By: Dr. Medina on 10-18-2022 RBC (Bld) [#/Vol] 4.65 10*6/uL 4.2-5.4 [facility] Blood hemoglobin measurement (mass/volume)Ordered By: Dr. Medina on 10-18-2022 Hemoglobin (Bld) [Mass/Vol] 13.8 g/dL 12.0-15.0 [facility] Blood lymphocytes/100 leukoc ytesOrdered By: Dr. Medina on 10-18-2022 Lymphocytes/100 WBC (Bld) 39.8 % 19-41 [facility] Blood monocytes/100 leukocyt esOrdered By: Dr. Medina on 10-18-2022 Monocytes/100 WBC (Bld) 8.4 % 0-10 [facility] Blood platelet mean volumeOr dered By: Dr. Medina on 10-18-2022 Platelet mean volume (Bld) [Entitic vol] 10.7 fL 6.2-12.0 [facility] Determination of erythrocyte mean corpuscular volume (MCV)Ordered By: Dr. Medina on 10-18-2022 MCV (RBC) [Entitic vol] 92.9 fL 81-99 [facility] Erythrocyte sedimentation ra teOrdered By: Dr. Medina on 10-18-2022 ESR (Bld) [Velocity] 11 mm/h 0-30 [facility] Hematocrit Auto (Bld) [Volum e fraction]Ordered By: Dr. Medina on 10-18-2022 Hematocrit (Bld) [Volume fraction] 43.2 % 37-47 [facility] Iron measurement (mass/mass) Ordered By: Dr. Medina on 10-18-2022 Iron (Unsp spec) [Mass/Mass] 51 ug/dL 50-170 [facility] - Chemistry and C hemistry - challengeOrdered By: Dr. Medina on 10-18-2022 ALP [Catalytic activity/Vol] 68 U/L 45-117 [facility] ALT [Catalytic activity/Vol] 32 U/L 13-56 [facility] CO2 [Moles/Vol] 27.0 mmol/L 21.0-32.0 [facility] Cobalamin (Vitamin B12) [Mass/Vol] 366 pg/mL 211-911 [facility] Globulin (S) [Mass/Vol] 3.6 g/dL 2.2-4.2 [facility] Urea nitrogen/Creatinine [Mass ratio] 17.8 mg/mg 10-20 [facility] - Hematology and Cell countsOrdered By: Dr. Medina on 10-18-2022 Erythrocyte distribution width (RBC) [Entitic vol] 41.9 fL 35.1-43.9 [facility] Erythrocyte distribution width (RBC) [Ratio] 12.3 % 11.6-14.6 [facility] Immature granulocytes/100 WBC (Bld) 0.300 % 0.0-0.9 [facility] Comment on above: IG% - Immature Granu locytes (promyelocytes, myelocytes and metamyelocytes) > 1% indicates that a LEFT SHIFT is Present. MCH (RBC) [Entitic mass] 29.7 pg 27.0-32.0 [facility] Nucleated RBC/100 WBC (Bld) [Ratio] 0 % 0-5 [facility] MCHC Auto (RBC) [Mass/Vol]Or dered By: Dr. Medina on 10-18-2022 MCHC (RBC) [Mass/Vol] 31.9 g/dL 32-36 [facility] No Panel InformationOrdered By: Dr. Medina on 10-18-2022 Estimated GFR (MDRD) Amer 71 mL/min >60 [facility] Comment on above: GFR Calc Estimated GFR (MDRD) Non-Af Amer 59 mL/min >60 [facility] Comment on above: Non- GFR Calc Thyroid Stimulating Hormone (TSH) 1.72 uIU/mL 0.358-3.74 [facility] Vitamin D 25-Hydroxy 43.9 ng/mL [facility] Comment on above: Vitamin D 25(OH) Sta tus Range Deficiency <20 ng/mL (50nmol/L) Insufficiency 20 - 30 ng/mL (50 - 75 nmol/L) Sufficiency 30 - 100 ng/mL (75 - 250 nmol/L) Toxicity >100 ng/mL (>250 nmol/L) Platelets bldOrdered By: Dr. Medina on 10-18-2022 Platelets (Bld) [#/Vol] 306 10*3/uL 150-450 [facility] Serum or plasma albumin mariangel urement (mass/volume)Ordered By: Dr. Medina on 10-18-2022 Albumin [Mass/Vol] 4.0 g/dL 3.2-5.0 [facility] Serum or plasma albumin/glob ulin mass ratioOrdered By: Dr. Medina on 10-18-2022 Albumin/Globulin [Mass ratio] 1.1 {ratio} 0.9-2.4 [facility] Serum or plasma calcium mariangel urement (mass/volume)Ordered By: Dr. Mdeina on 10-18-2022 Calcium [Mass/Vol] 9.2 mg/dL 8.5-10.1 [facility] Serum or plasma cortisol kaden surement (mass/volume)Ordered By: Dr. Medina on 10-18-2022 Cortisol [Mass/Vol] 9.10 ug/dL 3.44-22.45 [facility] Comment on above: Adult (AM) 5.27 - 22 .45 ug/dL Adult (PM) 3.44 - 16.76 ug/dLPlease note revised CORTISOL reference range effective 2019. Serum or plasma creatinine m easurement (mass/volume)Ordered By: Dr. Medina on 10-18-2022 Creatinine [Mass/Vol] 1.01 mg/dL 0.55-1.02 [facility] Comment on above: The validity of the calculated GFR & GFRAA in patients over 70 years has not been determined. Clinical correlation is essential. Serum or plasma urea nitroge n measurement (mass/volume)Ordered By: Dr. Medina on 10-18-2022 Urea nitrogen [Mass/Vol] 18 mg/dL 7-18 [facility] Thin prep Papanicolaou smear with manual screeningOrdered By: Dr. Medina on 10-18-2022 Thin prep Papanicolaou smear with manual screening 21 U/L 15-37 [facility] Thin prep Papanicolaou smear with manual screening 6 5-15 [facility] Basophil percentageon 2021 Bilirubin [Mass/Vol] 1.30 mg/dL 0.20-1.00 [facility] Work Phone: Comment on above: For patients on eltr ombopag therapy, use of Dim[place] TBIL is not recommended. Protein [Mass/Vol] 7.3 g/dL 6.4-8.2 [facility] Work Phone: Direct bilirubinon Bilirubin.direct [Mass/Vol] 0.25 mg/dL 0.00-0.30 [facility] Work Phone: Laboratory - Chemistry and C hemistry - challengeon 02-28-2022 ALP [Catalytic activity/Vol] 85 U/L 45-117 [facility] Work Phone: ALT [Catalytic activity/Vol] 52 U/L 13-56 [facility] Work Phone: [phone] Globulin (S) [Mass/Vol] 3.6 g/dL 2.2-4.2 [facility] Work Phone: Serum or plasma albumin mariangel urement (mass/volume)on 02-28-2022 Albumin [Mass/Vol] 3.7 g/dL 3.2-5.0 [facility] Work Phone: Thin prep Papanicolaou smear with manual screeningon 02-28-2022 Thin prep Papanicolaou smear with manual screening 26 U/L 15-37 [facility] Work Phone: Basophil percentageon 2021 Bilirubin [Mass/Vol] 1.60 mg/dL 0.20-1.00 [facility] Work Phone: Comment on above: For patients on eltr ombopag therapy, use of Dim[place] TBIL is not recommended. Chloride [Moles/Vol] 109 mmol/L 98-107 [facility] Work Phone: Glucose [Mass/Vol] 92 mg/dL 74-106 [facility] Work Phone: [phone] Potassium [Moles/Vol] 3.8 mmol/L 3.5-5.1 [facility] Work Phone: [phone] Protein [Mass/Vol] 7.4 g/dL 6.4-8.2 [facility] Work Phone: Sodium [Moles/Vol] 140 mmol/L 136-145 [facility] Work Phone: Laboratory - Chemistry and C hemistry - challengeon 02-09-2022 ALP [Catalytic activity/Vol] 85 U/L 45-117 [facility] Work Phone: ALT [Catalytic activity/Vol] 81 U/L 13-56 [facility] Work Phone: [phone] CO2 [Moles/Vol] 27.0 mmol/L 21.0-32.0 [facility] Work Phone: Globulin (S) [Mass/Vol] 3.7 g/dL 2.2-4.2 [facility] Work Phone: Urea nitrogen/Creatinine [Mass ratio] 16.8 mg/mg 10-20 [facility] Work Phone: No Panel Informationon 02-09 Estimated GFR (MDRD) Amer 76 mL/min >60 [facility] Work Phone: Comment on above: GFR Calc Estimated GFR (MDRD) Non-Af Amer 63 mL/min >60 [facility] Work Phone: Comment on above: Non- GFR Calc Parathyroid Hormone (Intact) 90.1 pg/mL 18.4-80.1 [facility] Work Phone: Vitamin D 25-Hydroxy 37.8 ng/mL [facility] Work Phone: Comment on above: Vitamin D 25(OH) Sta tus Range Deficiency <20 ng/mL (50nmol/L) Insufficiency 20 - 30 ng/mL (50 - 75 nmol/L) Sufficiency 30 - 100 ng/mL (75 - 250 nmol/L) Toxicity >100 ng/mL (>250 nmol/L) Serum or plasma albumin mariangel urement (mass/volume)on 02-09-2022 Albumin [Mass/Vol] 3.7 g/dL 3.2-5.0 [facility] Work Phone: [phone] Serum or plasma albumin/glob ulin mass ratioon 02-09-2022 Albumin/Globulin [Mass ratio] 1.0 {ratio} 0.9-2.4 [facility] Work Phone: [phone] Serum or plasma calcium mariangel urement (mass/volume)on 02-09-2022 Calcium [Mass/Vol] 9.1 mg/dL 8.5-10.1 [facility] Work Phone: [phone] Serum or plasma creatinine m easurement (mass/volume)on 02-09-2022 Creatinine [Mass/Vol] 0.95 mg/dL 0.55-1.02 [facility] Work Phone: [phone] Comment on above: The validity of the calculated GFR & GFRAA in patients over 70 years has not been determined. Clinical correlation is essential. Serum or plasma urea nitroge n measurement (mass/volume)on 02-09-2022 Urea nitrogen [Mass/Vol] 16 mg/dL 7-18 [facility] Work Phone: [phone] Thin prep Papanicolaou smear with manual screeningon 02-09-2022 Thin prep Papanicolaou smear with manual screening 52 U/L 15-37 [facility] Work Phone: [phone] Thin prep Papanicolaou smear with manual screening 4 5-15 [facility] Work Phone: [phone] Culture, urineon 01-10-2022 Bacteria identified Cx Nom (U) Escherichia coli [facility] Work Phone: [phone] Laboratory - Chemistry and C hemistry - challengeon 01-10-2022 Bilirubin Ql (U) Small (1+) [facility] Work Phone: [phone] Glucose Ql (U) Negative [facility] Work Phone: [phone] Ketones Ql (U) Negative [facility] Work Phone: [phone] pH (U) 5.0 [pH] [facility] Work Phone: [phone] Specific gravity (U) [Rel density] 1.030 [facility] Work Phone: [phone] Urobilinogen (U) [Mass/Vol] Negative [facility] Work Phone: Laboratory - Hematology and Cell countson 01-10-2022 Hemoglobin Ql (U) Large [facility] Work Phone: Laboratory - Specimen inform ationon 01-10-2022 Clarity (U) Clear [facility] Work Phone: Color (U) YELLOW [facility] Work Phone: Laboratory - Urinalysison Nitrite Ql (U) Negative [facility] Work Phone: Protein Ql (U) Negative [facility] Work Phone: No Panel Informationon 01-10 Urine Leukocytes Positive [facility] Work Phone: Urine Non-Hemolyzed Blood Large [facility] Work Phone: Culture, urine Bacteria identified Cx Nom (U) Escherichia coli [facility] Work Phone: Vital Signs Date Time Vital Sign Value Performing Clinician Faci lity 01-25-2025 08:01-0400 Body height 165.[address] Meghan Barahona MD Work Phone: [facility] 01-25-2025 07:55-0400 Body mass index (BMI) [Ratio] 27.3 kg/m2 Dr. Meghan Barahona MD Work Phone: [facility] 01-25-2025 07:55-0400 Body weight 74.[address] Meghan Barahona MD Work Phone: [facility] 01-25-2025 07:55-0400 Diastolic blood pressure 84 mm[Hg] Dr. Meghan Barahona MD Work Phone: [facility] 01-25-2025 07:55-0400 Systolic blood pressure 140 mm[Hg] Dr. Meghan Barahona MD Work Phone: [facility] 10-20-2024 13:43-0400 Body mass index (BMI) [Ratio] 26.8 kg/m2 Dr. Meghan Barahona MD Work Phone: [facility] 10-20-2024 13:43-0400 Body weight 73.[address] Meghan Barahona MD Work Phone: [facility] 10-20-2024 13:43-0400 Diastolic blood pressure 68 mm[Hg] Dr. Meghan Barahona MD Work Phone: [facility] 10-20-2024 13:43-0400 Heart rate 72 /min Dr. Meghan Barahona MD Work Phone: [facility] 10-20-2024 13:43-0400 SaO2% (BldA) [Mass fraction] 95 % Dr. Meghan Barahona MD Work Phone: [facility] 10-20-2024 13:43-0400 Systolic blood pressure 148 mm[Hg] Dr. Meghan Barahona MD Work Phone: [phone] [place] [address] 10-18-2023 13:45-0400 Body height 165.[address] Meghan Barahona Work Phone: [facility] 10-18-2023 13:45-0400 Body temperature 96.3 [degF] Dr. Meghan Barahona Work Phone: [facility] 10-18-2023 13:45-0400 Diastolic blood pressure 81 mm[Hg] Dr. Meghan Barahona Work Phone: [facility] 10-18-2023 13:45-0400 Heart rate 59 /min Dr. Meghan Barahona Work Phone: [facility] 10-18-2023 13:45-0400 Respiratory rate 16 /min Dr. Meghan Barahona Work Phone: [facility] 10-18-2023 13:45-0400 Systolic blood pressure 128 mm[Hg] Dr. Meghan Barahona Work Phone: [facility] 04-19-2023 13:30-0400 Body height 165.[address] Meghan Barahona Work Phone: [facility] 04-19-2023 13:30-0400 Body mass index (BMI) [Ratio] 26.9 kg/m2 Dr. Meghan Barahona Work Phone: [facility] 04-19-2023 13:30-0400 Body temperature 97 [degF] Dr. Meghan Barahona Work Phone: [facility] [facility] 04-19-2023 13:30-0400 Body weight 73.[address] Meghan Barahona Work Phone: [facility] 04-19-2023 13:30-0400 Diastolic blood pressure 78 mm[Hg] Dr. Meghan Barahona Work Phone: [facility] 04-19-2023 13:30-0400 Heart rate 66 /min Dr. Meghna Barahona Work Phone: 9(942)381-262208 [place] [address] 04-19-2023 13:30-0400 Respiratory rate 16 /min Dr. Meghan Barahona Work Phone: [facility] 04-19-2023 13:30-0400 SaO2% (BldA) [Mass fraction] 100 % Dr. Meghan Barahona Work Phone: [facility] 04-19-2023 13:30-0400 Systolic blood pressure 147 mm[Hg] Dr. Meghan Barahona Work Phone: [facility] 04-17-2023 13:55-0400 Body mass index (BMI) [Ratio] 26.8 kg/m2 Dr. Meghan Barahona Work Phone: [facility] 04-17-2023 13:55-0400 Body weight 73.[address] Meghan Barahona Work Phone: [facility] 04-17-2023 13:55-0400 Diastolic blood pressure 82 mm[Hg] Dr. Meghan Barahona Work Phone: [facility] 04-17-2023 13:55-0400 Heart rate 70 /min Dr. Meghan Barahona Work Phone: 2(679)068-088794 [address] 04-17-2023 13:55-0400 Respiratory rate 16 /min Dr. Meghan Barahona Work Phone: [facility] 04-17-2023 13:55-0400 Systolic blood pressure 140 mm[Hg] Dr. Meghan Barahona Work Phone: [facility] 02-25-2023 14:59-0400 Body mass index (BMI) [Ratio] 26.2 kg/m2 Dr. Meghan Barahona Work Phone: 3(081)[phone] [place] [address] 02-25-2023 14:59-0400 Body weight 71.[address] Meghan Barahona Work Phone: 5(248)895-835994 [address] 02-25-2023 14:59-0400 Diastolic blood pressure 86 mm[Hg] Dr. Meghan Barahona Work Phone: 9(738)890-038508 [place] [address] 02-25-2023 14:59-0400 Systolic blood pressure 142 mm[Hg] Dr. Meghan Barahona Work Phone: [facility] 02-07-2023 09:02-0400 Body height 165.[address] Meghan Barahona Work Phone: 8(632)688-011894 [address] 02-07-2023 09:02-0400 Body mass index (BMI) [Ratio] 26 kg/m2 Dr. Meghan Barahona Work Phone: [facility] 02-07-2023 09:02-0400 Body temperature 98.2 [degF] Dr. Meghan Barahona Work Phone: [facility] 02-07-2023 09:02-0400 Body weight 70.[address] Meghan Barahona Work Phone: 8(268)312-649708 [place] [address] 02-07-2023 09:02-0400 Diastolic blood pressure 86 mm[Hg] Dr. Meghan Barahona Work Phone: [facility] 02-07-2023 09:02-0400 Heart rate 84 /min Dr. Meghan Barahona Work Phone: [facility] 02-07-2023 09:02-0400 Respiratory rate 18 /min Dr. Meghan Barahona Work Phone: [facility] 02-07-2023 09:02-0400 SaO2% (BldA) [Mass fraction] 98 % Dr. Meghan Barahona Work Phone: [facility] 02-07-2023 09:02-0400 Systolic blood pressure 148 mm[Hg] Dr. Meghan Barahona Work Phone: [facility] 01-15-2023 13:16-0400 Body height 165.[address] Meghan Barahona Work Phone: [facility] 01-15-2023 13:14-0400 Body mass index (BMI) [Ratio] 26.2 kg/m2 Dr. Meghan Barahona Work Phone: [facility] 01-15-2023 13:14-0400 Body weight 71.[address] Meghan Barahona Work Phone: [facility] 01-15-2023 13:14-0400 Diastolic blood pressure 80 mm[Hg] Dr. Meghan Barahona Work Phone: [facility] 01-15-2023 13:14-0400 Systolic blood pressure 128 mm[Hg] Dr. Meghan Barahona Work Phone: [facility] 11-02-2022 05:44-0400 Body height 165.1 cm [facility] 11-02-2022 05:44-0400 Body mass index (BMI) [Ratio] 26.9 kg/m2 [facility] 11-02-2022 05:44-0400 Body temperature 97.9 [degF] [facility] 11-02-2022 05:44-0400 Body weight 73.3 kg [facility] 11-02-2022 05:44-0400 Diastolic blood pressure 71 mm[Hg] [facility] 11-02-2022 05:44-0400 Heart rate 92 /min [facility] 11-02-2022 05:44-0400 Respiratory rate 16 /min [facility] 11-02-2022 05:44-0400 SaO2% (BldA) [Mass fraction] 100 % [facility] 11-02-2022 05:44-0400 Systolic blood pressure 151 mm[Hg] [facility] 10-19-2022 14:23-0400 Body height 165.1 cm [facility] 10-19-2022 14:23-0400 Body temperature 97.3 [degF] [facility] 10-19-2022 14:23-0400 Diastolic blood pressure 81 mm[Hg] [facility] 10-19-2022 14:23-0400 Heart rate 66 /min [facility] 10-19-2022 14:23-0400 Respiratory rate 16 /min [facility] 10-19-2022 14:23-0400 SaO2% (BldA) [Mass fraction] 99 % [facility] 10-19-2022 14:23-0400 Systolic blood pressure 143 mm[Hg] [facility] 04-20-2022 14:35-0400 Diastolic blood pressure 90 mm[Hg] Dr. Meghan Barahona Work Phone: [facility] Work Phone: 04-20-2022 14:35-0400 Heart rate 83 /min Dr. Meghan Barahona Work Phone: [facility] Work Phone: 04-20-2022 14:35-0400 SaO2% (BldA) [Mass fraction] 99 % Dr. Meghan Barahona Work Phone: [facility] Work Phone: 04-20-2022 14:35-0400 Systolic blood pressure 152 mm[Hg] Dr. Meghan Barahona Work Phone: [facility] Work Phone: 02-08-2022 08:44-0400 Body height 165.[address] Meghan Barahona Work Phone: [facility] Work Phone: 02-08-2022 08:44-0400 Body mass index (BMI) [Ratio] 26.5 kg/m2 Dr. Meghan Barahona Work Phone: [facility] Work Phone: 02-08-2022 08:44-0400 Body temperature 95.2 [degF] Dr. Meghan Barahona Work Phone: [facility] Work Phone: 02-08-2022 08:44-0400 Body weight 72.[address] Meghan Barahona Work Phone: [facility] Work Phone: 02-08-2022 08:44-0400 Diastolic blood pressure 70 mm[Hg] Dr. Meghan Barahona Work Phone: [facility] Work Phone: 02-08-2022 08:44-0400 Heart rate 69 /min Dr. Meghan Barahona Work Phone: [facility] Work Phone: 02-08-2022 08:44-0400 Respiratory rate 18 /min Dr. Meghan Barahona Work Phone: [facility] Work Phone: 02-08-2022 08:44-0400 SaO2% (BldA) [Mass fraction] 99 % Dr. Meghan Barahona Work Phone: [facility] Work Phone: 02-08-2022 08:44-0400 Systolic blood pressure 118 mm[Hg] Dr. Meghan Barahona Work Phone: [facility] Work Phone: 01-10-2022 08:08-0400 Body mass index (BMI) [Ratio] 25.8 kg/m2 Dr. Meghan Barahona Work Phone: [facility] Work Phone: 01-10-2022 08:08-0400 Body weight 70.[address] Meghan Barahona Work Phone: [facility] Work Phone: 01-10-2022 08:08-0400 Diastolic blood pressure 80 mm[Hg] Dr. Meghan Barahona Work Phone: [facility] Work Phone: 01-10-2022 08:08-0400 Systolic blood pressure 120 mm[Hg] Dr. Meghan Barahona Work Phone: [facility] Work Phone: 01-10-2022 08:08-0400 Body height 165.[address] Meghan Barahona Work Phone: [facility] Work Phone: 01-10-2022 08:08-0400 Body mass index (BMI) [Ratio] 25.8 kg/m2 Dr. Meghan Barahona Work Phone: [facility] Work Phone: 01-10-2022 08:08-0400 Body weight 70.[address] Meghan Barahona Work Phone: [facility] Work Phone: 01-10-2022 08:08-0400 Diastolic blood pressure 80 mm[Hg] Dr. Meghan Barahona Work Phone: [facility] Work Phone: 01-10-2022 08:08-0400 Systolic blood pressure 120 mm[Hg] Dr. Meghan aBrahona Work Phone: [facility] Work Phone: Encounters Encounter Date Encounter Type Care Provider Facility Start: 01-25-2025 ambulatory Meghan Barahona Facility: [facility] Start: 01-25-2025 Encounter for gynecological examination (general) (routine) without abnormal findings Aida Carty [facility] Start: 01-25-2025 End: 01-25-2025 Patient encounter procedure Aida Carty NP-Rylee -[facility] Work Phone: Start: 01-25-2025 End: 01-25-2025 Patient encounter status Aida Carty [employer]-C [facility] Start: 01-25-2025 End: 01-25-[address] Meghan Barahona MD Work Phone: [facility] Work Phone: Start: 10-20-2024 End: 10-20-[address] Yordy Stein MD -[facility] Work Phone: Start: 10-20-2024 End: 10-20-2024 ambulatory Meghan Barahona Facility:[facility] Start: 04-30-2024 End: 04-30-2024 ambulatory Meghan Barahona [facility] Start: 02-18-2024 End: 02-18-2024 ambulatory Yordy Stein Facility:[facility] Start: 02-11-2024 ambulatory Ester Fields Facility:[facility] Start: 02-10-2024 End: 02-10-2024 ambulatory Meghan Barahona Facility:[facility] Start: 10-18-2023 End: 10-18-[address] Meghan Barahona Work Phone: [facility] Work Phone: Start: 10-18-2023 End: 10-18-[address] Meghan Barahona Work Phone: [facility] Work Phone: Start: 10-07-2023 End: 10-07-[address] Meghan Barahona Work Phone: [facility] Work Phone: Start: 09-23-2023 End: 09-23-[address] Meghan Barahona Work Phone: [facility] Work Phone: Start: 09-09-2023 End: 09-09-[address] Meghan Barahona Work Phone: [facility] Work Phone: Start: 08-19-2023 End: 08-19-[address] Meghan Barahona Work Phone: [facility] Work Phone: Start: 08-08-2023 End: 08-08-[address] Meghan Barahona Work Phone: [facility] Work Phone: Start: 07-15-2023 End: 07-15-[address] Meghan Barahona Work Phone: [facility] Work Phone: Start: 07-01-2023 End: 07-01-[address] Meghan Barahona Work Phone: [facility] Work Phone: Start: 06-24-2023 End: 06-24-[address] Meghan Barahona Work Phone: [facility] Work Phone: Start: 04-19-2023 End: 04-19-[address] Meghan Barahona Work Phone: [facility] Work Phone: Start: 04-19-2023 End: 04-19-[address] Meghan Barahona Work Phone: [facility] Work Phone: Start: 04-18-2023 End: 04-18-[address] Meghan Barahona Work Phone: [facility] Work Phone: Start: 04-18-2023 End: 04-18-[address] Meghan Barahona Work Phone: [facility] Work Phone: Start: 04-17-2023 End: 04-17-[address] Meghan Barahona Work Phone: [facility] Work Phone: Start: 04-17-2023 End: 04-17-[address] Meghan Barahona Work Phone: [facility] Work Phone: Start: 04-17-2023 End: 04-17-[address] Meghan Barahona Work Phone: [facility] Work Phone: Start: 04-16-2023 End: 04-16-[address] [facility]ah[facility] Phone: [facility] Work Phone: Start: 04-09-2023 End: 04-09-[address] Meghan Barahona [facility] Work Phone: Start: 04-01-2023 End: 04-01-[address] Meghan Barahona [facility] Work Phone: Start: 03-25-2023 End: 03-25-[address] Meghan Barahona [facility] Work Phone: Start: 03-18-2023 End: 03-18-[address] Meghan Barahona [facility] Work Phone: Start: 03-11-2023 End: 03-11-[address] Meghan Barahona Work Phone: [facility] Work Phone: Start: 03-04-2023 End: 03-04-[address] Meghan Barahona Work Phone: [facility] Work Phone: Start: 02-25-2023 End: 02-25-[address] Meghan Barahona Work Phone: [facility] Work Phone: Start: 02-07-2023 End: 02-07-[address] Meghan Barahona Work Phone: [facility] Work Phone: Start: 02-04-2023 End: 02-04-[address] Meghan Barahona Work Phone: [facility] Work Phone: Start: 02-04-2023 End: 02-04-[address] Meghan Barahona Work Phone: [facility] Work Phone: Start: 01-15-2023 End: 01-15-[address] Meghan Barahona Work Phone: [facility] Work Phone: Start: 01-15-2023 End: 01-15-[address] Meghan Barahona Work Phone: [facility] Start: 11-19-2022 End: 11-19-2022 ambulatory [facility] Work Phone: Start: 11-19-2022 End: 11-19-2022 Discharged Recurring [facility] Start: 11-02-2022 End: 11-02-2022 Emergency department patient visit [facility] Start: 10-30-2022 Registered Recurring [facility] Start: 10-22-2022 Registered Recurring [facility] Start: 10-19-2022 End: 10-19-2022 ambulatory [facility] Work Phone: Start: 10-19-2022 End: 10-19-2022 Patient encounter procedure [facility] Start: 10-18-2022 End: 10-18-2022 Patient encounter procedure [facility] Start: 09-10-2022 End: 09-10-2022 ambulatory [facility] Work Phone: Start: 09-10-2022 End: 09-10-2022 Discharged Recurring [facility] Start: 04-20-2022 End: 04-20-[address] Meghan Barahona Work Phone: [facility] Work Phone: Start: 04-20-2022 End: 04-20-[address] Meghan Barahona Work Phone: [facility] Start: 04-19-2022 End: 04-19-[address] Meghan Barahona Work Phone: [facility] Work Phone: Start: 04-19-2022 End: 04-19-[address] Meghan Barahona Work Phone: [facility] Start: 03-22-2022 End: 03-22-[address] Meghan Barahona Work Phone: [facility] Work Phone: Start: 03-22-2022 End: 03-22-[address] Meghan Barahona Work Phone: [facility] Start: 03-21-[address] Meghan vidal Work Phone: [facility] Start: 03-01-[address] Meghan vidal Work Phone: [facility] Start: 02-28-2022 End: 02-28-[address] Meghan Barahona Work Phone: [facility] Start: 02-09-2022 End: 02-09-[address] Meghan Barahona Work Phone: [facility] Start: 02-08-2022 End: 02-08-[address] Meghan Barahona Work Phone: [facility] Start: 01-11-2022 End: 01-11-[address] Meghan Barahona Work Phone: [facility] Start: 01-10-2022 End: 01-10-[address] Meghan Barahona Work Phone: [facility] Specimen Start: 01-10-2022 End: 01-10-[address] Meghan Barahona Work Phone: [facility] Procedures Date Procedure Procedure Detail Performing Clinician Start: 04-17-2023 Bacteria identified in Urine by Culture Dr. Meghan Barahona Work Phone: Start: 04-17-[address] Meghan vidal Work Phone: Start: 02-04-2023 MRI of brain with contrast Dr. Meghan Barahona Work Phone: Start: 01-15-2023 Screening mammography D rAlek Barahona Work Phone: Start: 11-02-2022 CT of head without contrast Start: 04-19-2022 MRI of joint of lowe r extremity Dr. Meghan Barahona Work Phone: Start: 03-22-2022 Plain X-ray of shoulder Dr. Meghan Barahona Work Phone: Start: 01-11-2022 Screening mammography D rAlek Barahona Work Phone: Start: 01-10-2022 Bacteria identified in Urine by Culture Dr. Meghan Barahona Work Phone: Start: 01-10-[address] Meghan vidal Work Phone: Bacteria identified in Urine by Culture Dr. Mehgan Barahona Work Phone: Urine culture Dr. Meghan ball Work Phone: Plan of Treatment Date Care Activity Detail Author Start: 01-15-2023 Liquid based cervical cytology screening [facility] Comprehensive metabo lic 2000 panel - Serum or Plasma [facility] Path report.final Dx Spec [facility] Patient Education ED Headache Un specified ED, Migraine (Classical) [facility] Work Phone: Patient referral [facility] Work Phone: [facility] Vitamin D, 25-hydrox y measurement [facility] Payers Date Payer Category Payer Medicare [id number] 2024 Unknown [id number] 2024 Self-pay [id number] 2023 Unknown [id number] Private Health Insurance [id number] Unknown [facility] [phone] Unknown [id number] Unknown [id number] Unknown [id number] Unknown [id number] Unknown [id number] Unknown [id number] Unknown [id number] Social History Date Type Detail Facility Start: 01-10-2022 End: 10-07-2023 Tobacco smoking status DCIS Unknown if ever smoked [facility] Start: 1960 Sex Assigned At Female [facility] Start: 01-25-2025 Tobacco smoking stat us DCIS Ex-smoker (finding) [facility] Goals Date Patient Goal Desired Activity /State Mental Status Date Assessment Result Facility 10-18-2023 Cognitive function Awake;Alert;Appropriat e [facility] Work Phone: 04-19-2023 Cognitive function Voice/Name [facility] Work Phone: 11-02-2022 Cognitive function Level Of Cons ciousness Awake;Alert;Appropriate;Follow s Commands [facility] Work Phone: 10-19-2022 Cognitive function Voice/Name [facility] Work Phone: 04-20-2022 Cognitive function Level Of Cons ciousness Awake;Alert;Appropriate;Follow s Commands [facility] Work Phone: Clinical Notes 09-10-2022 to 01-25-2025 Note Date & Type Note Facility 01-25-2025 Progress note [facility] 10-20-2024 Evaluation note Diagnosis Onset Date Resolution Osteoporosis chronic October 20, 2024 1:42pm Vitamin D deficiency chronic Paul 2024 1:42pm Atrophic vaginitis acute January 042024 7:54am Encounter for routine gynecological examination noneactive January 25, 2025 7:54am [facility] Work Phone: 1(586) [phone] NotePap Smear Specimen AdequacyJune 2022 11:59pmComment.Satisfactory for evaluation. Endocervical and/or squamous metaplasticcells (endocervical component)are present.[facility] A#[id number] on above:Satisfactory for evaluation. Endocervical and/or squamous metaplasticcells (endocervical component)are present.01-15-2023 NotePap Smear Specimen AdequacyJune 2022 11:59pmComment.Satisfactory for evaluation. Endocervical and/or squamous metaplasticcells (endocervical component)are present.[facility] A#[id number] on above:Satisfactory for evaluation. Endocervical and/or squamous metaplasticcells (endocervical component)are present.01-15-2023 NotePap Smear Specimen AdequacyJune 2022 11:59pmComment.Satisfactory for evaluation. Endocervical and/or squamous metaplasticcells (endocervical component)are present.[facility] A#[id number] HospitalComment on above:Satisfactory for evaluation. Endocervical and/or squamous metaplasticcells (endocervical component)are present.01-15-2023 NotePap Smear Specimen AdequacyJune 2022 11:59pmComment.Satisfactory for evaluation. Endocervical and/or squamous metaplasticcells (endocervical component)are present.[facility] A#[id number] HospitalCombright[facility] on above:Satisfactory for evaluation. Endocervical and/or squamous metaplasticcells (endocervical component)are present.11-19-2022 Discharge summary Author Ailyn Long [facility] November 19, 2022 7:45am Note Date/Time November 19, 2022 7:4 5am [facility] [address] [place] [address] [address] [place] [address] / REHABILITATION SERVICES DISCHARGE SUMMARY MR#: [id number] Acct: [id number] Name: TREVOR MARI Rep #: [id number] : 1960 62 From: Ailyn Duarte Referring Dr.: Dr. Nas Medina MD Statu s: REG RCR Insurance: [facility] [employer] It has been my pleasure to treat TREVOR THOMPSON referred by Dr. Nas Medina MD, with the diagnosis of Right Shoulder Pain for a total of 18 visit(s). Discharge Date: Please see the following information for a summary of their discharge status. Subjective: Patient reports that the right shoulder still has some issues going backwards and wakes her up going backwards. But its getting better. She feels good about the gym program. She is gone 2.5 weeks. Right Shoulder Pain Intensity (Out of 10): 4 Left Shoulder Pain Intensity (Out of 10): 0 % Improvement: 80 Objective/Function: Posture: fair throughout treatment session in both sitting and standing- no guarding of either UE Gait: no deviation noted- good arm swingand trunk rotation. Palpation: not tender to touch. ROM: Cervical: WFL Shoulder AROM: Flexion: 180 degrees, Abd: 170 degrees, IR: thumb to bottom of scap, ER: 50 PROM: WFL in all directions Elbow/Wrist/Hand: WNL. Strength: Scap: fair minus- mild winging, Shoulder: 4+/5 in neutral, Elbow: 5/5, Wrist: 5/5. Flex: UT: moderate, Levator: moderate. Sensation: WFL to gross touch bilateral UE Goal 1:: Patient will be I with HEP and progression Goal Progress: Goal Met Goal 2:: Patient will demo full AROM without pain Goal 3:: Patient will maintain proper posture to demo scap s/s Goal Progress: Goal Met Goal 4:: Patient will report 80% improvement Goal Progress: Goal Met Plan: 11/19/22: Discharge to I HEP through H&W- given written UE program. 09/19/22: Continue 2x a week for 4 weeks with progression to H&W program. continue shoulder treatment tomorrow and notify EG if patient still dizzy. If there are questions or concerns regarding this patient's physical therapy, please feel free to call me at [phone]. Thank you for the referral of thispatient. Sincerely, Ailyn Long DPT Balance/Gait/Functional tests - Balance/Special Test Scores Quick DASH Score: 13.6350 <Electronically signed by Ailyn Long DPT> 11/19/22 0745 CC: Dr. Meghan Barahona MD; Dr. Nas Medina MD ~ ELR Signed [facility] Work Phone: 1(113) 171-893202-06-2023 Discharge summary Author Ailyn Long [facility] September 10, 2022 2:13pm Note Date/Time September 10, 2022 2 :13pm [facility] [address] [place] [address] / REHABILITATION SERVICES DISCHARGE SUMMARY MR#: [id number] Acct: [id number] Name: TREVOR MARI Rep #: [id number] : 1960 62 From: Ailyn YAN T Referring Dr.: Dr. Nas Medina MD Statu s: REG RCR Insurance: [facility] [employer] It has been my pleasure to treat TREVOR THOMPSON referred by Dr. Nas Medina MD, with the diagnosis of Left Posterior Capsule Tightness- Shoulder for a total of 34 visit(s). Discharge Date: Please see the following information for a summary of their discharge status. Subjective: Patient reports that she is so much better- but now her right arm isbothering her. Behind the back is still tight. She is doing massage and exercises. No questions or concerns on the exercises. Left shoulder Pain Intensity (Out of 10): 0 % Improvement: 95 Objective/Function: Posture: fair throughout in sitting and standing. Gait: no deviation noted- good arm swing and trunk rotation. Palpation: not tender to touch. ROM: Cervical: WFL in all planes Shoulder AROM: Flexion: 160 degrees, Abd: 170 degrees, IR: to L3, ER: 40, Strength: Scap: fair minus- mild winging, Shoulder: 4+/5 in neutral, Elbow: 4+/5, Wrist: 5/5 Berry Picker: 40 lbs bilateral. Flex: UT: moderate, Levator: moderate. Sensation: WFL to gross touch bilateral UE. Goal 1:: Patient will be I with HEP and progression Goal Progress: Progressing Goal 2:: Patient will maintain proper posture t/o tx session to demo increased scap s/s Goal Progress: Progressing Goal 3:: Patient will demo full AROM of the left shoulder Goal Progress: Progressing Goal 4:: Patient will report 80% improvement Goal Progress: Progressing Plan: 09/10/22:Discharge to I HEP If there are questions or concerns regarding this patient's physical therapy, please feel free to call me at [phone]. Thank you for the referral of thispatient. Sincerely, Ailyn Long DPT Balance/Gait/Functional tests - Balance/Special Test Scores Quick DASH Score: [phone] <Electronically signed by Ailyn Long DPT> 09/10/22 1413 CC: Dr. Meghan Barahona MD; Dr. Nas Medina MD ~ ELR Signed [facility] Work Phone: Discharge summary Author Dr. Antonio [facility] November 02, 2022 7:08am Note Date/Time November 02, 2022 6:[address] [facility] Medical Records Department [address] [place] [id number] Emergency Department Summary 11/02/22 MR#: [id number] Acct: [id number] Name: TREVOR MARI Rep #:[id number] : 1960 62 From: Guru Antonio MD PCP: Dr. Meghan Barahona MD Status:REG ER Location: ED HPI History of Present Illness Chief Complaint: Headache Informant: patient Onset/Context/Timing Onset: Hours (2) Context: Sudden and Activity (resting in bed, not asleep) Timing: Intermittent Location: Bifrontal and occipital Current Severity: Moderate Maximum Severity: Moderate Worsened by: Light Relieved by: Nothing Associated Symptoms/Injury Associated Symptoms: Positive for Visual Changes (Spots in peripheral vision bilaterally), Blurred Vision and Photophobia; Negative for Fever, Nausea, Vomiting, Sinus Pressure or Tingling Injury - LYNCH: Negative for Direct Trauma Narrative Narrative: Patient woke up in the middle of the night this morning around 4 AM with a headache, states it has been coming and going since then but when it started it was abrupt, but not a thunderclap. No loss of consciousness. She states it wasawake when it started. For the past 2 or 3 weeks, she has been having lots of nasal congestion, some rhinorrhea without purulence, and vertiginous symptoms. The vertigo is gone and she has not been off balance this morning when walking. She denies any weakness, numbness in arms or legs or trouble speaking or understanding others although she was having some vision symptoms as above. Notreally having much in the way of headaches like this in the past 2 or 3 weeks. She did see her PCP and had some blood work for all of this, she has had no imaging of her head recently. [facility] Medical History Osteoporosis Vitamin D deficiency Home Medications calcium-vitamin D3-vitamin K 500 mg-1,000 unit-40 mcg chewable tablet 1 tab PO DAILY 12/17/17 [History Last Taken Unknown] Prolia 60 mg/mL subcutaneous syringe (denosumab) 60 mg subcut [id number] #1 mL 02/12/22 [Rx Last Taken Unknown] Allergy/AdvReac Type Severity Reaction Status Date / Time Penicillins Allergy Severe Anaphylaxis Verified 11/02/22 05:48 alendronate sodium Allergy Intermediate Rash Verified 11/02/22 05:48 clindamycin Allergy Intermediate Rash Verified 11/02/22 05:48 doxycycline Allergy Intermediate PT UNSURE Verified 11/02/22 05:48 OF REACTION Family History Mother Breast cancer Aunt Breast cancer Father Larynx cancer Surgical History History of S/P appendectomy Social History Smoking Status: Former smoker alcohol intake: current details: 1 glass of wine nightly substance use type: does not use caffeine: Yes what type of physical activity do you participate in: none seatbelt use: always do you feel safe at home: Yes additional social history: - 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 [employer] 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 at [employer] ROS ROS ED Constitutional Constitutional ED: Denies chills or fever(s) Eyes Eyes: Reports as per HPI, blurry vision and change in vision bilateral; Denies diplopia ENT ENT ED: Reports rhinorrhea; Denies ear pain or sore throat Cardiovascular Cardiovascular: Denies chest pain or palpitations Respiratory/Chest Respiratory/Chest: Denies cough or dyspnea Gastrointestinal Gastrointestinal: Denies abdominal pain, diarrhea, nausea or vomiting Genitourinary Genitourinary ED: Denies dysuria or urinary frequency Musculoskeletal Musculoskeletal: Denies back pain or myalgias Integumentary Denies abscess or rash Neurologic Neurologic: Reports headache(s); Denies paresthesias or weakness EXAM Physical Exam Const Vital Signs: 11/02/22 05:44 Temperature 97.9 F Temperature Source Temporal Pulse Rate 92 Respiratory Rate 16 Blood Pressure 151/71 H Blood Pressure Mean 97 Pulse Ox 100 Oxygen Delivery Method Room Air Positive well nourished and well developed General Appearance ED: well developed and NAD HEENT Reports normocephalic, TM's clear and moist mucous membranes atraumatic Tympanic Membrane ED: Yes TM's clear Eyes PERRL, EOMs intact bilaterally and conjunctivae normal Eyes Narrative: mild photophobia. No abnormal/pathologic nystagmus Neck no lymphadenopathy, supple and no meningeal signs Resp normal respiratory effort and clear to auscultation bilaterally GI non-tender and non-distended Palpation: soft Extremity normal to inspection and full ROM Neuro oriented x3 and CN's II-XII intact bilaterally Sensorium / Orientation: awake and alert Coordination / Balance: [id number] test normal and [id number]-cfot test normal Speech: speech normal Gait (Neuro): normal gait Motor Exam: strength 5/5 throughout Psych mental status grossly normal Skin Lesions: no lesions Rashes: no rashes MDM MDM MDM Narrative Medical decision making narrative: Patient was treated with IV Reglan and Toradol, and a CT of the brain was obtained, I had the parts identification technician include the sinuses as well given her symptoms. 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 On reevaluation patient is feeling better. Stable for discharge home, her bloodpressures in the 150s here, do not think this is deserving of acute emergent treatment, she needs to have follow-up evaluation blood pressure check. We discussed reasons to return. Radiography Diagnostic Testing: Clinical Impression(s) from Imaging Studies Brain CT 11/02/22 06:01 IMPRESSION: Negative head/brain CT without intravenous contrast. Electronically Signed: Mir Betancourt MD at 6:56 EDT , Discharge Plan Triage Chief Complaint: Headache ED Provider: Guru Antonio Dx/Rx/DC Orders Clinical Impression: Acute headache Instructions: ED Headache Unspecified, ED, Migraine (Classical) Prescriptions: No Action calcium-vitamin D3-vitamin K 500 mg-1,000 unit-40 mcg tablet,chewable 1 tab PO DAILY Prolia 60 mg/mL syringe 60 mg subcut [id number] Qty: 1 1RF Primary Care Provider: Meghan Barahona Referrals: Meghan Barahona MD [Primary Care Provider] - 3-5 Days if not improving Disposition Disposition: Home, Self Care What to do if you have Problems For any increased pain, shortness of breath, bleeding, nausea or vomiting, chestpain, or any unexpected problems, contact your Primary Care Provider. Call [facility] ([phone]) or report to the closest Emergency Room. Call 911 if necessary. 11/02/22 0708 <Electronically signed by Guru Antonio MD> Cosigner Signature (if applicable): CC: Dr. Meghan Barahona MD ~ Signed [facility] Work Phone: Evaluation note* Diagnosis Onset Date Resolution Status Family history of breast cancer in mother acute Osteopenia acute [facility] Work Phone: Evaluation note* Diagnosis Onset Date Resolution Status Family history of breast cancer in mother acute UTI (urinary tract infection) noneactive Encounter for routine gynecological examination noneactive Osteoporosis acute Vitamin D deficiency acute [facility] Work Phone: Evaluation noteNo assessment information available [facility] Work Phone: Evaluation note* Diagnosis Onset Date Resolution Status Atrophic vaginitis acute Family history of breast cancer in mother acute Osteoporosis acute Encounter for routine gynecological examination noneactive [facility] Work Phone: Evaluation note* Diagnosis Onset Date Resolution Status Atrophic vaginitis acute Family history of breast cancer in mother acute Osteoporosis chronic Encounter for routine gynecological examination noneactive Osteoporosis chronic [facility] Work Phone: Evaluation note* Diagnosis Onset Date Resolution Status Atrophic vaginitis acute Family history of breast cancer in mother acute Osteoporosis chronic Encounter for routine gynecological examination noneactive Osteoporosis chronic Back pain acute Segmental and somatic dysfunction of cervical region acute Segmental and somatic dysfunction of lumbar region acute Segmental and somatic dysfunction of pelvic region acute Segmental and somatic dysfunction of thoracic region acute Back pain acute Segmental and somatic dysfunction of cervical region acute Segmental and somatic dysfunction of lumbar region acute Segmental and somatic dysfunction of pelvic region acute Segmental and somatic dysfunction of thoracic region acute Back pain acute Segmental and somatic dysfunction of cervical region acute Segmental and somatic dysfunction of lumbar region acute Segmental and somatic dysfunction of pelvic region acute Segmental and somatic dysfunction of thoracic region acute Back pain acute Segmental and somatic dysfunction of cervical region acute Segmental and somatic dysfunction of lumbar region acute Segmental and somatic dysfunction of pelvic region acute Segmental and somatic dysfunction of thoracic region acute Back pain acute Concussion acute Segmental and somatic dysfunction of cervical region acute Segmental and somatic dysfunction of lumbar region acute Segmental and somatic dysfunction of pelvic region acute Segmental and somatic dysfunction of thoracic region acute Back pain acute Segmental and somatic dysfunction of cervical region acute Segmental and somatic dysfunction of lumbar region acute Segmental and somatic dysfunction of pelvic region acute Segmental and somatic dysfunction of thoracic region acute Back pain acute Segmental and somatic dysfunction of cervical region acute Segmental and somatic dysfunction of lumbar region acute Segmental and somatic dysfunction of pelvic region acute Segmental and somatic dysfunction of thoracic region acute Back pain acute Segmental and somatic dysfunction of cervical region acute Segmental and somatic dysfunction of lumbar region acute Segmental and somatic dysfunction of pelvic region acute Segmental and somatic dysfunction of thoracic region acute Dizziness acute [facility] Work Phone: Evaluation note* Diagnosis Onset Date Resolution Status Back pain acute Segmental and somatic dysfunction of cervical region acute Segmental and somatic dysfunction of lumbar region acute Segmental and somatic dysfunction of pelvic region acute Segmental and somatic dysfunction of thoracic region acute Back pain acute Segmental and somatic dysfunction of cervical region acute Segmental and somatic dysfunction of lumbar region acute Segmental and somatic dysfunction of pelvic region acute Segmental and somatic dysfunction of thoracic region acute Back pain acute Segmental and somatic dysfunction of cervical region acute Segmental and somatic dysfunction of lumbar region acute Segmental and somatic dysfunction of pelvic region acute Segmental and somatic dysfunction of thoracic region acute Back pain acute Segmental and somatic dysfunction of cervical region acute Segmental and somatic dysfunction of lumbar region acute Segmental and somatic dysfunction of pelvic region acute Segmental and somatic dysfunction of thoracic region acute Back pain acute Segmental and somatic dysfunction of cervical region acute Segmental and somatic dysfunction of lumbar region acute Segmental and somatic dysfunction of pelvic region acute Segmental and somatic dysfunction of thoracic region acute Back pain acute Segmental and somatic dysfunction of cervical region acute Segmental and somatic dysfunction of lumbar region acute Segmental and somatic dysfunction of pelvic region acute Segmental and somatic dysfunction of thoracic region acute Back pain acute Segmental and somatic dysfunction of cervical region acute Segmental and somatic dysfunction of lumbar region acute Segmental and somatic dysfunction of pelvic region acute Segmental and somatic dysfunction of thoracic region acute Back pain acute Segmental and somatic dysfunction of cervical region acute Segmental and somatic dysfunction of lumbar region acute Segmental and somatic dysfunction of pelvic region acute Segmental and somatic dysfunction of thoracic region acute [facility] Work Phone: Progress note Author Aida Carty [facility] Note Date/Time January 25, 2025 8:29 am [facility] [address], [address] [place] [address] OFFICE VISIT Date of Service: 01/25/25 MR#: [id number] Acct: [id number] Name: TREVOR MARI Rep #: [id number] : 1960 Provider: JOCY Carty Age/Sex: 64/F [place] [facility] [place]: Signed Intake Vital Signs 02/10/24 09:25 10/20/24 13:43 01/25/25 07:55 01/25/25 08:01 Height 5 ft 5 in 5 ft 5 in 5 ft 5 in 5 ft 5 in Weight: 161 lb 164 lb 2 oz BMI 26.8 27.3 BP 148/68 H 140/84 H Blood Pressure Location Rt brachial Position Sitting Pulse 72 Pulse Source Monitor Pulse Oximetry (%) 95 Oxygen Delivery Method room air 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 Is patient in pain?: No Allergies Penicillins Allergy (Severe, Verified 01/25/25 08:15) Anaphylaxis alendronate sodium Allergy (Intermediate, Verified 01/25/25 08:15) Rash clindamycin Allergy (Intermediate, Verified 01/25/25 08:15) Rash doxycycline Allergy (Intermediate, Verified 01/25/25 08:15) PT UNSURE OF REACTION Medications ?Medication ?Instructions ?Recorded ?Confirmed ?Type Prolia 60 mg/mL subcutaneous 60 mg subcut [id number] #1 mL 02/07/23 01/25/25 Rx syringe (denosumab) cholecalciferol (vitamin D3) 50 100 mcg PO DAILY 03/2801/25/25 History mcg (2,000 unit) capsule multivitamin 1 tab PO DAILY 03/28/2301/04 History triamcinolone acetonide 0.1 % 1 applic topical BID PRN skin 04/17/23 01/25/25 History topical ointment irritation Is last menstrual period known: No Post menopausal: Yes Patient : No : No PFS Medical History (Updated 01/25/25 @ 08:28 by Aida Carty WATER PLANT OPERATOR, WATER PLANT OPERATOR-C) Dizziness Vitamin D deficiency Osteoporosis Surgical History S/P appendectomy History of Family History Mother Breast cancer CVA (cerebral vascular accident) Aunt Breast cancer Father Larynx cancer Social History (Updated 01/25/25 @ 08:27 by Aida Carty WATER PLANT OPERATOR, WATER PLANT OPERATOR-C) current occupational status: retired Smoking Status: Former smoker alcohol intake: current details: 1 glass of wine nightly substance use type: does not use caffeine: Yes Type: coffee Number of servings: 1 what type of physical activity do you participate in: none seatbelt use: always do you feel safe at home: Yes additional social history: - [employer]olf- [employer] Patient retired [employer] History 1 Elective abortions Hx Para 1 Spontaneous abortions Hx # Term Pregnancies Ectopic pregnancies Hx # Pregnancies Multiple births # of living children Past Pregnancies Del. Date Name GA/Weeks Outcome Route Bth Weight Gen Labor Lgth Anesthesia Del Locatn Provider FOB Unknown HPI Encounter for routine gynecological examination Details: TREVOR THOMPSON is a 64 year old who presents for annual exam. Last PAP: 2022 History of abnormal PAP: no Last mammogram: today pending History of abnormal mammogram: no Colon cancer screenin Other preventative health care screenings: [place] Female Reproductive History Questions: metorrhagia: No and sexually active: No ROS Const Constitutional: Denies fatigue, weight gain or weight loss Cardio Card: Denies chest pain Resp Resp: Denies cough or dyspnea on exertion GI GI: Denies abdominal pain, bloating, change in stool character, constipation or vomiting : Reports as per HPI; Denies difficulty voiding, pelvic pain, urinary frequency, urinary incontinence,urinary urgency, vaginal discharge or vaginal pruritus Exam Const General: cooperative, healthy appearing, no acute distress and well developed Orientation: alert, oriented to person and oriented to place HENAL Head: normal to inspection Neck Neck: normal visual inspection Thyroid: thyroid normal Lymphatic: no lymphadenopathy noted Chest Breast inspection: normal inspection of the breasts and normal inspection of theaxillae Breast palpation: normal palpation of the breasts, normal palpation of the axillae and no axillary lymphadenopathy Resp Effort & Inspection: normal respiratory effort GI Palpation: soft, no masses and nontender Rectal Exam: deferred External Female Exam: normal external appearance and normal appearance of the urethra Urethra: normal appearance of the urethra and normal palpation Speculum Exam - Vagina: normal vaginal discharge and vagina atrophic (small introitus) Speculum Exam - Cervix: normal appearance of the cervix Bimanual Exam- Vagina & Uterus: normal bimanual exam, uterine size normal, uterine shape normal and non-tender Bimanual Exam- Adnexa, other: normal adnexae, no masses, normal and non-tender Pelvic Support: normal Neuro General: patient alert and patient oriented x3 Psych Affect: normal affect Coding Level of Care Code Pelvic/Breast Diagnoses Encounter for gynecological examination without abnormal finding Z01.419 Gynecological examination findings: abnormal findings ABSENT Atrophic vaginitis N95.2 Assessment and Plan Assessment and Plan (1) Encounter for routine gynecological examination: Qualifiers: Gynecological examination findings: abnormal findings ABSENT Qualified Code(s): Z01.419 - Encounter for gynecological examination (general) (routine) without abnormal findings (2) Atrophic vaginitis: Status: Acute Comment: not problematic Plan Completed breast and pelvic exam Reviewed diet and exercise Pap NA Mammogram today, pending breast self exam encouraged monthly Declines need for intervention for atrophic vaginitis Colonoscopy 2019 Bone density follows osteoporosis with Dr Stein RTO 1 year, prn with problems Aida Carty PLATEN DRIER OPERATOR Plan Details Goals & Barriers: Goals Decrease spasm Decrease pain Improve ability to perform job Barriers Computer work 01/25/25 0829 <Electronically signed by Aida alex WATER PLANT OPERATOR WATER PLANT OPERATOR-C> Date _ Aida Carty NP WATER PLANT OPERATOR-C Cosigner Signature: Date (if applicable) CC: ~ [facility] Work Phone: Reason for referral (narrative)No reason for referral information availableS[facility] Work Phone: Chief Complaint and Reason for Visit 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 RX HERE Other specified joint disorders, left shoulder TIGHT POSTERIOR CAPSULE OF LEFT SHOULDER PROLIA Reason for Visit Family history of br east cancer in mother UTI (urinary tract infection) Encounter for routine gynecological examination Osteoporosis Vitamin D deficiency Chief Complaint LT SHOULDER. RX HERE Chief Complaint LT SHOULDER. RX HERE PROLIA RT SHOULDER. RX HERE Chief Complaint LT SHOULDER. RX HERE PROLIA RT SHOULDER. RX HERE HEAD ACH Chief Complaint LT SHOULDER. RX HERE PROLIA HEAD ACH RT SHOULDER. RX HERE Chief Complaint PROLIA HEAD ACH RT SHOULDER. 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 FU EST CARE Back pain Back pain Back pain Back pain Back pain Back pain Back pain DIZZINESS (ESTEFANIA) INT LABS PROLIA Reason for Visit Atrophic vaginitis Family history of breast cancer in mother Osteoporosis Encounter for routine gynecological examination Osteoporosis Back pain Segmental and somatic dysfunction of cervical region Segmental and somatic dysfunction of lumbar region Segmental and somatic dysfunction of pelvic region Segmental and somatic dysfunction of thoracic region Back pain Segmental and somatic dysfunction of cervical region Segmental and somatic dysfunction of lumbar region Segmental and somatic dysfunction of pelvic region Segmental and somatic dysfunction of thoracic region Back pain Segmental and somatic dysfunction of cervical region Segmental and somatic dysfunction of lumbar region Segmental and somatic dysfunction of pelvic region Segmental and somatic dysfunction of thoracic region Back pain Segmental and somatic dysfunction of cervical region Segmental and somatic dysfunction of lumbar region Segmental and somatic dysfunction of pelvic region Segmental and somatic dysfunction of thoracic region Back pain Concussion Segmental and somatic dysfunction of cervical region Segmental and somatic dysfunction of lumbar region Segmental and somatic dysfunction of pelvic region Segmental and somatic dysfunction of thoracic region Back pain Segmental and somatic dysfunction of cervical region Segmental and somatic dysfunction of lumbar region Segmental and somatic dysfunction of pelvic region Segmental and somatic dysfunction of thoracic region Back pain Segmental and somatic dysfunction of cervical region Segmental and somatic dysfunction of lumbar region Segmental and somatic dysfunction of pelvic region Segmental and somatic dysfunction of thoracic region Back pain Segmental and somatic dysfunction of cervical region Segmental and somatic dysfunction of lumbar region Segmental and somatic dysfunction of pelvic region Segmental and somatic dysfunction of thoracic region Dizziness Chief Complaint Back pain Back pain Back pain Back pain Back pain Back pain Back pain Back pain PROLIA Reason for Visit Back pain Segmental and somatic dysfunction of cervical region Segmental and somatic dysfunction of lumbar region Segmental and somatic dysfunction of pelvic region Segmental and somatic dysfunction of thoracic region Back pain Segmental and somatic dysfunction of cervical region Segmental and somatic dysfunction of lumbar region Segmental and somatic dysfunction of pelvic region Segmental and somatic dysfunction of thoracic region Back pain Segmental and somatic dysfunction of cervical region Segmental and somatic dysfunction of lumbar region Segmental and somatic dysfunction of pelvic region Segmental and somatic dysfunction of thoracic region Back pain Segmental and somatic dysfunction of cervical region Segmental and somatic dysfunction of lumbar region Segmental and somatic dysfunction of pelvic region Segmental and somatic dysfunction of thoracic region Back pain Segmental and somatic dysfunction of cervical region Segmental and somatic dysfunction of lumbar region Segmental and somatic dysfunction of pelvic region Segmental and somatic dysfunction of thoracic region Back pain Segmental and somatic dysfunction of cervical region Segmental and somatic dysfunction of lumbar region Segmental and somatic dysfunction of pelvic region Segmental and somatic dysfunction of thoracic region Back pain Segmental and somatic dysfunction of cervical region Segmental and somatic dysfunction of lumbar region Segmental and somatic dysfunction of pelvic region Segmental and somatic dysfunction of thoracic region Back pain Segmental and somatic dysfunction of cervical region Segmental and somatic dysfunction of lumbar region Segmental and somatic dysfunction of pelvic region Segmental and somatic dysfunction of thoracic region Chief Complaint Admit Date 8 M FU/Prolia - B&B October 20, 2024 1:4 2pm Annual ([employer]) January 25, 2025 7:54 am Reason for Visit Admit Date Osteoporosis October 20, 2024 1:4 2pm Vitamin D deficiency October 20, 2024 1: 42pm Atrophic vaginitis January 25, 2025 7:54 am Encounter for routine gynecological exam ination January 25, 2025 7:54am Family History No Family History Records Found Relationship Condition Age at Onset Recorded Date/T bertha mother Malignant neoplasm of breast Unknown aunt Malignant neoplasm of breast Unknown father Malignant neoplasm of larynx Unknown Relationship Condition Age at Onset Recorded Date/T bertha mother Malignant neoplasm of breast Unknown Cerebrovascular accident (CVA) Unknown aunt Malignant neoplasm of breast Unknown father Malignant neoplasm of larynx Unknown Advance Directives No Advanced Directives Records Found Advance Directive Response Recorded Date/ Time Living Will Yes November 02, 2022 5:47am Power of Hand Sign Writer No November 02 5:47am Advance Directive Response Recorded Date/ Time Living Will Yes November 02, 2022 5:47am Do you have a Healthcare Power of Hand Sign Writer? No November 02, 2022 5:47am Summary Purpose Additional Source Comments Goals (unrecognized section and content) Goals may be documented in a n alternate sectionGoals may be documented in an alternate sectionGoals may be documented in an alternate sectionGoals may be documented in an alternate sectionGoals may be documented in an alternate sectionGoals may be documented in an alternate sectionGoals may be documented in an alternate sectionGoals may be documented in an alternate sectionGoals may be documented in an alternate sectionGoals may be documented in an alternate sectionGoals may be documented in an alternate sectionGoals may be documented in an alternate section Care Teams (unrecognized sec tion and content) Team Status: Active Member Role Status Dates Dr. Meghan Barahona MD Family Provider Active Dr. Meghan Barahona MD Primary Care Provider Active Team Status: Inactive Member Role Status Dates Dr. Meghan Barahona MD Primary Care Provider Active Dr. Nas Medina MD Attending Provider, Referri ng Provider Active Team Status: Inactive Member Role Status Dates Dr. Meghan Barahona MD Primary Care Provider Active Dr. Yordy Stein MD Attending Provider, Referring Provi damien Active Team Status: Active Member Role Status Dates Dr. Meghan Barahona MD Primary Care Provider Active Dr. Nas Medina MD Attending Provider, Referri ng Provider Active Team Status: Inactive Member Role Status Dates Dr. Meghan Barahona MD Primary Care Provider Active Dr. Nas Medina MD Attending Provider Active Team Status: Inactive Member Role Status Dates Dr. Meghan Barahona MD Primary Care Provider Active Dr. Guru Antonio MD Emergency Provider Active Team Status: Inactive Member Role Status Dates Dr. Meghan Barahona MD Primary Care Provider Active Dr. Guru Antonio MD Attending Provider, Emergency Provider Active Team Status: Inactive Member Role Status Dates Dr. Meghan Barahona MD Primary Care Provider, Referrin g Provider Active Aida Carty WATER PLANT OPERATOR, WATER PLANT OPERATOR-C Attending Provider Active Team Status: Inactive Member Role Status Dates Dr. Meghan Barahona MD Primary Care Provider Active Aida Carty WATER PLANT OPERATOR, WATER PLANT OPERATOR-C Attending Provider, Referring Provider Active Team Status: Inactive Member Role Status Dates Dr. Meghan Barahona MD Primary Care Provider, Referrin g Provider Active Dr. Yordy Stein MD Attending Provider Active Team Status: Inactive Member Role Status Dates Dr. Meghan Barahona MD Primary Care Provider Active Dr. Eugene Thurman MD Attending Provider, Referring P rovider Active Team Status: Inactive Member Role Status Dates Dr. Meghan Barahona MD Primary Care Provider, Referrin g Provider Active Dr. Ester Fields DC Attending Provider Active Team Status: Inactive Member Role Status Dates Dr. Meghan Barahona MD Primary Care Provider, Referrin g Provider Active Dr. Figueroa Shultz MD Attending Provider Active Team Status: Active Member Role Status Dates Dr. Meghan Barahona MD Primary Care Provider Active Dr. Figueroa Shultz MD Attending Provider, Referring Pro vider Active Team Status: Active Member Role Status Dates Dr. Meghan Barahona MD Primary Care Provider Active Manda Stathopjonny , WATER PLANT OPERATOR-C Attending Provider Active Team Status: Inactive Member Role Status Dates Dr. Meghan Barahona MD Primary Care Provider Active Manda Stathopoulos , WATER PLANT OPERATOR-C Attending Provider Active Team Status: Inactive Member Role Status Dates Dr. Meghan Barahona MD Primary Care Provider Active Dr. Figueroa Shultz MD Attending Provider, Referring Pro vider Active Team Status: Active Member Role Status Dates Dr. Meghan Barahona MD Primary Care Provider Active Team Status: Inactive Member Role Status Dates Dr. Meghan Barahona MD Primary Care Provider Active Start: October 20, 2024 End: October 20, 2024 Dr. Meghan Barahona MD Referring Provider Active Start: October 20, 2024 End: October 20, 2024 Dr. Yordy Stein MD Attending Provider Active Sta rt: October 20, 2024 End: October 20, 2024 Team Status: Inactive Member Role Status Dates Dr. Meghan Barahona MD Primary Care Provider Active Start: January 25, 2025 End: January 25, 2025 Dr. Meghan Barahona MD Referring Provider Active Start: January 25, 2025 End: January 25, 2025 Aida Carty NP, WATER PLANT OPERATOR-C Attending Provider Active Start: January 25, 2025 End: January 25, 2025 INFORMATION SOURCE (unrecogn ized section and content) DATE CREATED AUTHOR 01/26/2025 [facility] FOR RECORDS PERTAINING TO PATIENTS WHO ARE OR HAVE BEEN ENROLLED IN A CHEMICAL DEPENDENCY/SUBSTANCEABUSE PROGRAM, SOME INFORMATION MAY BE OMITTED. This clinical summary was aggregated from multiple sources. Caution should be exercised in using it in the provision of clinical care. This summary normalizes information from multiple sources, and as a consequence, information in this document may materially change the coding, format and clinical context of patient data. In addition, data may be omitted in some cases. CLINICAL DECISIONS SHOULD BE BASED ON THE PRIMARY CLINICAL RECORDS. [facility] [employer] [facility]. provides no warranty or guarantee of the accuracy or completeness of information in this document.
[2025-01-28 08:56] LABS: Vitamin D,25 Hydroxy 57.2 ng/mL (30-100)
[2025-01-28 09:02] LABS: ALB/GLOB Ratio 1.4 RATIO (0.9-2.4); AST(SGOT) 55 U/L (<=31); Alanine Aminotransfer ALT/SGPT 93 U/L (<=34); Albumin, Serum 4.3 g/dL (3.4-4.8); Alkaline Phosphatase 79 U/L (35-104); Anion Gap 12 (5-15); BUN 14 mg/dL (4-19); BUN/Creat Ratio 14.2 RATIO (10-20); Calcium,Total 9.3 mg/dL (7.6-11.0); Carbon Dioxide 22.8 mmol/L (21.0-32.0); Chloride 108 mmol/L (98-108); Creatinine, Serum 0.99 mg/dL (0.70-1.20); EST Glomerular Filtration Rate 63 (>60); Globulin 3.1 g/dL (2.2-4.2); Glucose 97 mg/dL (70-99); Potassium 4.4 mmol/L (3.3-5.1); Protein, Total 7.4 g/dL (5.9-8.4); Sodium Level 142 mmol/L (133-145); Total Bilirubin 1.16 mg/dL (0.00-1.30)
== END | disposition home or self-care (01) ==
PROVIDERS: PCP Family Medicine; Referring Provider Internal Medicine Endocrinology, Diabetes & Metabolism; Visit Provider Internal Medicine Endocrinology, Diabetes & Metabolism
DX: E55.9 Vitamin D deficiency, unspecified (principal); E03.9 Hypothyroidism, unspecified; M81.0 Age-related osteoporosis without current pathological fracture
CPT/HCPCS: 36415; 80053; 82306

== ENCOUNTER → 2025-02-01 | Outpatient (CLI) | payer MEDICARE, OTHER, SELFPAY ==
[2025-02-01 12:46] LABS: Absolute Lymphocyte Count 2.17 X10^3/uL (0.83-4.51); Absolute Neutrophil Count 3.3 X10^3/uL (2.0-7.7); Basophil# 0.02 X10^3/uL; Basophil% 0.3 % (0-1); Eosinophil# 0.16 X10^3/uL; Eosinophils% 2.6 % (0-5); Hematocrit 42.2 % (37-47); Lymphocyte # 2.17 X10^3/ul (0.83-4.51); Lymphocyte % 34.9 % (19-41); Mean Corp Hgb Conc 33.2 g/dL (32-36); Mean Corpuscular Hgb 30.6 pg (27.0-32.0); Mean Corpuscular Volume 92.3 fL (81-99); Mean Platelet Vol. 10.4 fl (6.2-12.0); Monocyte# 0.55 X10^3/uL; Monocyte% 8.9 % (0-10); NRBC Flagged by Analyzer 0 % (0-5); Neutrophil # 3.29 X10^3/uL (2.7-7.7); Platelet Count 293 K/mm3 (150-450); RBC Distribution Width CV 12.4 % (11.6-14.6); RBC Distribution Width SD 42.3 fl (35.1-43.9); Red Blood Count 4.57 M/mm3 (4.2-5.4); White Blood Count 6.2 K/mm3 (4.4-11.0)
[2025-02-01 13:30] LABS: ALB/GLOB Ratio 1.4 RATIO (0.9-2.4); AST(SGOT) 34 U/L (<=31); Alanine Aminotransfer ALT/SGPT 65 U/L (<=34); Albumin, Serum 4.5 g/dL (3.4-4.8); Alkaline Phosphatase 67 U/L (35-104); Anion Gap 13 (5-15); BUN 16 mg/dL (4-19); BUN/Creat Ratio 16.3 RATIO (10-20); CRP < 3.00 mg/L (0.0-3.0); Calcium,Total 9.5 mg/dL (7.6-11.0); Carbon Dioxide 22.2 mmol/L (21.0-32.0); Chloride 105 mmol/L (98-108); EST Glomerular Filtration Rate 63 (>60); Ferritin 100 ng/mL (22-378); Globulin 3.1 g/dL (2.2-4.2); Glucose 94 mg/dL (70-99); Potassium 3.7 mmol/L (3.3-5.1); Protein, Total 7.6 g/dL (5.9-8.4); Sodium Level 140 mmol/L (133-145); Total Bilirubin 1.88 mg/dL (0.00-1.30)
[2025-02-03 04:07] LABS: GGTP 58 IU/L (0-60)
== END | disposition home or self-care (01) ==
LOC: LAB 12:06
PROVIDERS: PCP Family Medicine; Referring Provider Family Medicine; Visit Provider Family Medicine
DX: R74.8 Abnormal levels of other serum enzymes (principal)
CPT/HCPCS: 36415; 80053; 82728; 82977; 85025; 86140

== ENCOUNTER → 2025-03-12 | Outpatient (CLI) | payer MEDICARE, OTHER, SELFPAY ==
--- NOTE | 2025-03-12 09:09 | US_ITS ---
PROCEDURE: ABD LIMITED W/ ELASTOGRAPHY REASON FOR EXAM: ELEVATED LIVER ENZYMES COMPARISON: None. TECHNIQUE: Right upper quadrant abdominal ultrasound. Gallo ElastQ Imaging shear wave elastography for non-invasive assessment of liver tissue stiffness. Gallo EPIQ Elite. FINDINGS: LIVER: Size: Unremarkable Length: 14.6 cm Echotexture: Diffusely echogenic suggesting fatty infiltration Contour: Nodular Lesions: There is a 1 cm x 1 cm x 0.7 cm septated cyst in the right lobe of the liver. There is also evidence of a 7 mm x 6 mm x 4 mm right hepatic cyst. Elastography: EQI Med: 7.9 kPa EQI Med Donnell: 1.62 m/s IQR/Med: 13 %* GALLBLADDER: No stones sludge wall thickening or tenderness. COMMON BILE DUCT: Normal measuring 2.1 mm . PANCREAS: Visualized portions are sonographically unremarkable. Visualized portions of the right kidney are unremarkable. No right upper quadrant ascites. US/ABD Limited w/ Elastography IMPRESSION: [id number] degree of hepatic fibrosis. Small hepatic cysts. Reference Values: SRU <1.37 m/s (5.7kPa): No to mild fibrosis 1.37 m/s - 2.2 m/s: Moderate to severe fibrosis >2.2 m/s (15kPa): Significant fibrosis / cirrhosis METAVIR Score F2 or higher: 1.34 m/s (5.7kPa) F3 or higher: 1.55 m/s (7.3kPa) F4: 1.80 m/s (10kPa) * If the IQR/Med is >30%, the variance in the measurements is a large and the a ccuracy of the measurement may be in question. Reading Location: [id number]
== END | disposition home or self-care (01) ==
LOC: US 09:08
PROVIDERS: PCP Family Medicine; Referring Provider Family Medicine; Visit Provider Family Medicine
DX: R74.8 Abnormal levels of other serum enzymes (principal)
CPT/HCPCS: 76705; 76981

== ENCOUNTER → 2025-03-23 | Outpatient (CLI) | payer MEDICARE, OTHER, SELFPAY ==
[2025-03-23 12:59] LABS: AST(SGOT) 24 U/L (<=31); Alanine Aminotransfer ALT/SGPT 39 U/L (<=34); Albumin, Serum 4.4 g/dL (3.4-4.8); Alkaline Phosphatase 65 U/L (35-104); Bilirubin, Direct 0.43 mg/dL (0.00-0.30); Globulin 3.1 g/dL (2.2-4.2)
== END | disposition home or self-care (01) ==
LOC: MFPLAB 11:07
PROVIDERS: PCP Family Medicine; Referring Provider Family Medicine; Visit Provider Family Medicine
DX: K74.00 Hepatic fibrosis, unspecified (principal)
CPT/HCPCS: 36415; 80076

== ENCOUNTER → 2025-05-13 | Outpatient (CLI) | payer MEDICARE, OTHER, SELFPAY ==
[2025-05-13 07:52] LABS: Hematocrit 40.7 % (37-47); Hemoglobin 13.3 g/dL (12.0-15.0); Immature Granulocytes Count 0.020 X10^3/uL (0.0-0.0); Mean Corp Hgb Conc 32.7 g/dL (32-36); Mean Corpuscular Volume 90.0 fL (81-99); Mean Platelet Vol. 10.3 fl (6.2-12.0); NRBC Flagged by Analyzer 0 % (0-5); Platelet Count 297 K/mm3 (150-450); RBC Distribution Width CV 12.3 % (11.6-14.6); RBC Distribution Width SD 40.6 fl (35.1-43.9); Red Blood Count 4.52 M/mm3 (4.2-5.4); White Blood Count 6.5 K/mm3 (4.4-11.0)
[2025-05-13 09:16] LABS: AST(SGOT) 30 U/L (<=31); Alanine Aminotransfer ALT/SGPT 46 U/L (<=34); Albumin, Serum 4.5 g/dL (3.4-4.8); Alkaline Phosphatase 68 U/L (35-104); Anion Gap 13 (5-15); BUN 15 mg/dL (4-19); BUN/Creat Ratio 15.8 RATIO (10-20); Calcium,Total 9.2 mg/dL (7.6-11.0); Carbon Dioxide 23.7 mmol/L (21.0-32.0); Chloride 105 mmol/L (98-108); Globulin 2.8 g/dL (2.2-4.2); Glucose 96 mg/dL (70-99); Potassium 4.0 mmol/L (3.3-5.1)
[2025-05-14 14:08] LABS: ANTINUCLEAR ANTIBODIES DIRECT Positive (Negative); Alpha Antitrypsin Serum 146 mg/dL (101-187)
[2025-05-14 16:09] LABS: GGTP 36 IU/L (0-60); Immunoglobulin A 234 mg/dL (87-352)
== END | disposition home or self-care (01) ==
LOC: LAB 06:46
PROVIDERS: PCP Family Medicine; Referring Provider Family Medicine; Visit Provider Family Medicine
DX: K74.00 Hepatic fibrosis, unspecified (principal)
CPT/HCPCS: 36415; 80053; 82103; 82784; 82977; 83516; 85025; 86038; 86255

== ENCOUNTER → 2025-05-19 | Outpatient (CLI) | payer MEDICARE, OTHER, SELFPAY ==
[2025-05-21 13:08] LABS: ANTINUCLEAR ANTIBODIES DIRECT Positive (Negative); Anti-Chromatin <0.2 AI (0.0-0.9); Anti-Jo <0.2 AI (0.0-0.9); Anti-dsDNA Ab 19 IU/mL (0-9); SJOGREN'S Anti-SS-A test 0.6 AI (0.0-0.9); SJOGREN'S Anti-SS-B test < 0.2 AI (0.0-0.9)
== END | disposition home or self-care (01) ==
LOC: MFPLAB 11:28
PROVIDERS: PCP Family Medicine; Visit Provider Family Medicine
DX: K74.00 Hepatic fibrosis, unspecified (principal)
CPT/HCPCS: 36415; 86038; 86225; 86235